=== PATIENT | male | born 1965 | race Caucasian/White ===

== ENCOUNTER 2016-11-28 11:49 | Emergency (ER) | payer OTHER, SELFPAY ==
[~2016-11-28] VITALS: Ht 175.3 cm; Wt 65.9 kg
[2016-11-28 11:49] VITALS: BP 119/77
[~2016-11-28 11:49] MED LIST: ALBUTEROL INHALER INH; GABA-283 PO; OMEP40CA2 PO; PERC7.5T12 PO; VICODAN PO; ZITHROMAX PO
== END 2016-11-28 13:25 | disposition left against medical advice (07) ==
LOC: M ED 11:49
DX: S89.91XA Unspecified injury of right lower leg, initial encounter (principal); W54.0XXA Bitten by dog, initial encounter; Y92.89 Other specified places as the place of occurrence of the external cause; Y93.89 Activity, other specified; Y99.8 Other external cause status; Z53.29 Procedure and treatment not carried out because of patient's decision for other reasons

== ENCOUNTER → 2017-02-09 | Outpatient (CLI) | payer SELFPAY, MEDICAID, OTHER ==
[2017-02-09 19:44] LABS: MEAN CORPUSCULAR HEMOGLOBIN 31.9 pg (27.0-33.0); MEAN CORPUSCULAR HGB CONC 34.4 g/dl (32.0-36.5); MEAN CORPUSCULAR VOLUME 92.8 fl (80.0-96.0); PLATELET COUNT, AUTOMATED 321 10^3/uL (150-450); RED CELL DISTRIBUTION WIDTH 14.6 % (11.5-14.5); WHITE BLOOD COUNT 16.1 10^3/uL (4.0-10.0)
[2017-02-09 20:26] LABS: ANION GAP 6 MEQ/L (8-16); BLOOD UREA NITROGEN 21 MG/DL (7-18); CALCIUM LEVEL 9.3 MG/DL (8.5-10.1); CARBON DIOXIDE LEVEL 30 MEQ/L (21-32); CHLORIDE LEVEL 104 MEQ/L (98-107); GLOMERULAR FILTRATION RATE > 60.0 (>56); GLUCOSE, FASTING 86 MG/DL (70-105); POTASSIUM SERUM 4.5 MEQ/L (3.5-5.1); SODIUM LEVEL 140 MEQ/L (136-145)
--- NOTE | 2017-02-10 01:51 | REP ---
Clinical: Renal neoplasm . Comparison: 10/20/2015 . Technique: PA and lateral. Findings: The mediastinum and cardiac silhouette are normal. The lung jay are clear and without acute consolidation, effusion, or pneumothorax. The skeletal structures are intact and normal. Impression: 1. No acute cardiopulmonary process. Signed by Maged Huffman MD 02/10/2017 01:42 A
== END ==
LOC: M SMT 15:48
PROVIDERS: ATTEND Nurse Practitioner Women's Health
DX: Z85.528 Personal history of other malignant neoplasm of kidney (principal)

== ENCOUNTER → 2017-03-09 | Outpatient (CLI) | payer MEDICAID, OTHER ==
[~2017-03-09] MED LIST changes: +ALEV220T26 PO; +GABA-282 PO; +IPRASOL4 INH; +MULT1TAB10 PO; +NAPR250T4 PO; +SUCR1TA PO; +VENTAER INH
[2017-03-11 14:10] LABS: PSA TOTAL 1.8 ng/mL (0.0-4.0)
== END ==
LOC: M SMT 15:07
PROVIDERS: ATTEND Urology
DX: Z08 Encounter for follow-up examination after completed treatment for malignant neoplasm (principal); Z85.528 Personal history of other malignant neoplasm of kidney

== ENCOUNTER 2017-03-20 10:39 | Day surgery (SDC) | payer OTHER ==
[~2017-03-20] VITALS: Ht 175.3 cm; Wt 69.9 kg
[2017-03-20] MEDS ORDERED: NS 1,000 ML IV ONE (11:00)
[2017-03-20] MEDS ORDERED: LIDOCAINE 2% INJ 100 MG/5 ML SDV (FOR ANES.) As Ordered ONE (11:03)
[2017-03-20] MEDS ORDERED: PROPOFOL 200 MG/20 ML VIAL As Ordered ONE ×2 (11:03→12:09)
--- NOTE | 2017-03-20 12:08 | ROOR ---
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 Procedure: Pre-Anesthesia Assessment: - The heart rate, respiratory rate, oxygen saturations, blood pressure, adequacy of pulmonary ventilation, and response to care were monitored throughout the procedure. The Endoscope was introduced through the mouth, and advanced to the second part of duodenum. The upper GI endoscopy was accomplished without difficulty. The patient tolerated the procedure well. Findings: The Z-line was regular and was found 40 cm from the incisors. Localized mild mucosal changes characterized by scarring were found in the stomach. Biopsies were taken with a cold forceps for histology. The exam of the duodenum was otherwise normal. Impression: - Z-line regular, 40 cm from the incisors. - Scarred mucosa in the stomach. Biopsied. - The examination was otherwise normal. Recommendation: - Await pathology results. - Discharge patient to home. - Continue present medications. - Await pathology results. - Telephone GI clinic for pathology results in 1 week. - The findings and recommendations were discussed with the patient's family. Gustavo Rogers MD Gustavo Rogers MD 03/20/2017 12:07:21 PM This report has been signed electronically. Number of Addenda: 0 Note Initiated On: 03/20/2017 11:50 AM Estimated Blood Loss: Estimated blood loss: none.
--- NOTE | 2017-03-20 12:22 | ROOR ---
Patient Name: Maged Leon Procedure Date: 03/20/2017 11:51 AM Date of : 1965 Age: 52 Room: [facility] Gender: Male Note Status: Finalized Procedure: Total Colonoscopy to Cecum + Cold Snare Polypectomy Indications: Rectal bleeding, Change in bowel habits, Clinically significant diarrhea of unexplained origin Providers: Gustavo Rogers MD Referring MD: NOHEMY Izaguirre Requesting Provider: Medicines: Monitored Anesthesia Care Complications: No immediate complications. Procedure: Pre-Anesthesia Assessment: - The heart rate, respiratory rate, oxygen saturations, blood pressure, adequacy of pulmonary ventilation, and response to care were monitored throughout the procedure. The Colonoscope was introduced through the anus and advanced to the cecum, identified by appendiceal orifice and ileocecal valve. The colonoscopy was performed without difficulty. The patient tolerated the procedure well. The quality of the bowel preparation was excellent. Findings: The perianal and digital rectal examinations were normal. Non-bleeding internal hemorrhoids were found during retroflexion. The hemorrhoids were small and Grade I (internal hemorrhoids that do not prolapse). A medium polyp was found in the hepatic flexure. The polyp was sessile. The polyp was removed with a cold snare. Resection and retrieval were complete. The exam was otherwise without abnormality on direct and retroflexion views. Impression: - Non-bleeding internal hemorrhoids. - One medium polyp at the hepatic flexure, removed with a cold snare. Resected and retrieved. - The examination was otherwise normal on direct and retroflexion views. - The exam was otherwise normal to the cecum. Recommendation: - Patient has a contact number available for emergencies. The signs and symptoms of potential delayed complications were discussed with the patient. Return to normal activities tomorrow. Written discharge instructions were provided to the patient. - High fiber diet. - Discharge patient to home. - Continue present medications. - Await pathology results. - Telephone GI clinic for pathology results in 1 week. - Repeat colonoscopy for surveillance based on pathology results. - Return to referring physician. - The findings and recommendations were discussed with the patient's family. Gustavo Rogers MD Gustavo Rogers MD 03/20/2017 12:22:01 PM This report has been signed electronically. Number of Addenda: 0 Note Initiated On: 03/20/2017 11:51 AM Estimated Blood Loss: Estimated blood loss: none.
[2017-03-20 12:55] VITALS: BP 148/95
== END 2017-03-20 13:05 | disposition home or self-care (01) ==
LOC: M OPP 10:39
PROVIDERS: ATTEND Internal Medicine Gastroenterology
DX: K62.5 Hemorrhage of anus and rectum (principal); R19.4 Change in bowel habit; R19.7 Diarrhea, unspecified; K64.0 First degree hemorrhoids; D12.3 Benign neoplasm of transverse colon; C88.4 Extranodal marginal zone B-cell lymphoma of mucosa-associated lymphoid tissue [MALT-lymphoma]; B96.81 Helicobacter pylori [H. pylori] as the cause of diseases classified elsewhere; K31.89 Other diseases of stomach and duodenum; R10.13 Epigastric pain; J44.9 Chronic obstructive pulmonary disease, unspecified; R51 Headache; G47.33 Obstructive sleep apnea (adult) (pediatric); F17.210 Nicotine dependence, cigarettes, uncomplicated; K27.9 Peptic ulcer, site unspecified, unspecified as acute or chronic, without hemorrhage or perforation; M50.20 Other cervical disc displacement, unspecified cervical region; Z79.891 Long term (current) use of opiate analgesic; Z79.899 Other long term (current) drug therapy; Z90.5 Acquired absence of kidney

== ENCOUNTER 2017-04-20 21:17 | Emergency (ER) | payer OTHER, MEDICAID ==
[2017-04-20] MEDS: NS 1,000 ML IV (22:15)
[2017-04-20] MEDS: ASPIRIN 81 MG CHEW TABLET PO (22:15)
[2017-04-20] MEDS: LORazepam 2 MG/ML VIAL (J2060) IV (22:15)
[2017-04-20 22:29] LABS: WHITE BLOOD COUNT 14.3 10^3/uL (4.0-10.0)
[2017-04-20 22:30] LABS: BASO # 0.1 10^3/uL (0.0-0.2); BASO % 0.4 % (0.0-1.0); EOS # 0.4 10^3/uL (0.0-0.50); EOS % 2.7 % (0.0-3.0); IMMATURE GRANULOCYTE # 0.1 10^3/uL (0-0); IMMATURE GRANULOCYTE % 0.6 % (0-0); LYMPH # 1.6 10^3/uL (1.5-4.5); LYMPH % 10.8 % (24.0-44.0); MEAN CORPUSCULAR HEMOGLOBIN 32.4 pg (27.0-33.0); MEAN CORPUSCULAR HGB CONC 34.2 g/dl (32.0-36.5); MEAN CORPUSCULAR VOLUME 94.6 fl (80.0-96.0); MONO # 1.2 10^3/uL (0.0-0.8); MONO % 8.2 % (0.0-5.0); NEUTROPHILS # 11.1 10^3/uL (1.8-7.7); NEUTROPHILS % 77.3 % (36.0-66.0); PLATELET COUNT, AUTOMATED 339 10^3/uL (150-450); RED CELL DISTRIBUTION WIDTH 16.1 % (11.5-14.5)
[2017-04-20 22:40] LABS: ANION GAP 9 MEQ/L (8-16); BLOOD UREA NITROGEN 18 MG/DL (7-18); CALCIUM LEVEL 8.9 MG/DL (8.5-10.1); CARBON DIOXIDE LEVEL 27 MEQ/L (21-32); CHLORIDE LEVEL 106 MEQ/L (98-107); CREATININE FOR GFR 1.28 MG/DL (0.70-1.30); GLOMERULAR FILTRATION RATE > 60.0 (>56); GLUCOSE, FASTING 85 MG/DL (70-105); INR 0.83; POTASSIUM SERUM 3.9 MEQ/L (3.5-5.1); SODIUM LEVEL 142 MEQ/L (136-145)
[2017-04-20] MEDS: IPRATROPIUM 0.5MG/ALBUTEROL 2.5MG INH SOL UD 3ML (DUONEB)(J7620) NEB (22:42)
[2017-04-20 22:47] LABS: VENOUS BASE EXCESS 2.6 (-2.0-2.0); VENOUS O2 SATURATION 88.5 % (60.0-80.0); VENOUS PARTIAL PRESSURE CO2 23.7 mmHg (38.0-50.0); VENOUS PARTIAL PRESSURE O2 41.4 mmHg (30.0-50.0); VENOUS STANDARD HCO3 26.6 MEQ/L; VENOUS TOTAL CO2 23.2 MEQ/L (24.0-28.0)
[2017-04-20] MEDS: CARISOPRODOL 350 MG TAB PO (23:15)
[2017-04-20] MEDS: NAPROXEN 250 MG TAB PO (23:15)
== END 2017-04-20 23:51 | disposition home or self-care (01) ==
LOC: M ED 21:17
DX: J44.1 Chronic obstructive pulmonary disease with (acute) exacerbation (principal); M54.40 Lumbago with sciatica, unspecified side; I45.2 Bifascicular block; G89.29 Other chronic pain; F17.200 Nicotine dependence, unspecified, uncomplicated; Z82.49 Family history of ischemic heart disease and other diseases of the circulatory system; Z79.899 Other long term (current) drug therapy; Z91.89 Other specified personal risk factors, not elsewhere classified
CPT/HCPCS: J2060

== ENCOUNTER → 2017-05-10 | Outpatient (CLI) | payer OTHER ==
[~2017-05-10] MED LIST changes: -ALBUTEROL INHALER INH; -ALEV220T26 PO; -GABA-282 PO; -GABA-283 PO; -IPRASOL4 INH; -MULT1TAB10 PO; -NAPR250T4 PO; -OMEP40CA2 PO; -PERC7.5T12 PO; +PROHANCE 279.3MG/ML 15ML VIAL (A9576) As Ordered; -SUCR1TA PO; -VENTAER INH; -VICODAN PO; -ZITHROMAX PO
== END ==
LOC: M RAD 15:26
DX: M47.22 Other spondylosis with radiculopathy, cervical region (principal); M51.16 Intervertebral disc disorders with radiculopathy, lumbar region; M51.36 Other intervertebral disc degeneration, lumbar region
CPT/HCPCS: A9576

== ENCOUNTER → 2017-05-24 | Outpatient (CLI) | payer OTHER | LOC: M RAD 14:02 | DX: M47.22 Other spondylosis with radiculopathy, cervical region (principal); M50.222 Other cervical disc displacement at C5-C6 level; M50.223 Other cervical disc displacement at C6-C7 level; M50.322 Other cervical disc degeneration at C5-C6 level; M50.323 Other cervical disc degeneration at C6-C7 level | CPT/HCPCS: A9576 ==

== ENCOUNTER 2017-08-23 00:05 | Emergency (ER) | payer OTHER ==
[2017-08-23 01:29] LABS: BASO # 0.1 10^3/uL (0.0-0.2); BASO % 1.2 % (0.0-1.0); EOS # 0.6 10^3/uL (0.0-0.50); EOS % 5.1 % (0.0-3.0); HEMATOCRIT 40.8 % (42.0-52.0); IMMATURE GRANULOCYTE % 0.3 % (0-3.0); LYMPH # 2.2 10^3/uL (1.5-4.5); LYMPH % 18.9 % (24.0-44.0); MEAN CORPUSCULAR HEMOGLOBIN 31.7 pg (27.0-33.0); MEAN CORPUSCULAR HGB CONC 34.3 g/dl (32.0-36.5); MEAN CORPUSCULAR VOLUME 92.3 fl (80.0-96.0); MONO # 1.1 10^3/uL (0.0-0.8); MONO % 9.9 % (0.0-5.0); NEUTROPHILS # 7.4 10^3/uL (1.8-7.7); NEUTROPHILS % 64.6 % (36.0-66.0); PLATELET COUNT, AUTOMATED 326 10^3/uL (150-450); RED BLOOD COUNT 4.42 10^6/uL (4.30-6.10); RED CELL DISTRIBUTION WIDTH 14.2 % (11.5-14.5); WHITE BLOOD COUNT 11.5 10^3/uL (4.0-10.0)
[2017-08-23 01:42] LABS: ANION GAP 6 MEQ/L (8-16); BLOOD UREA NITROGEN 19 MG/DL (7-18); CALCIUM LEVEL 9.3 MG/DL (8.5-10.1); CARBON DIOXIDE LEVEL 27 MEQ/L (21-32); CHLORIDE LEVEL 105 MEQ/L (98-107); CPK CREATINE PHOSPHOKINASE 122 U/L (39-308); CREATININE FOR GFR 1.23 MG/DL (0.70-1.30); GLOMERULAR FILTRATION RATE > 60.0 (>56); GLUCOSE, FASTING 96 MG/DL (70-100); SODIUM LEVEL 138 MEQ/L (136-145); TROPONIN I < 0.02 NG/ML (< 0.10)
[2017-08-23 01:43] LABS: CK-MB VALUE MASS < 1.0 NG/ML (<3.6); MB/CK RELATIVE INDEX 0.81 (< OR =4)
[2017-08-23] MEDS ORDERED: ISOVUE-370 76% 100ML VIAL (Q9967) As Ordered (01:56)
[2017-08-23 02:43] LABS: ABG BASE EXCESS -0.1 (-2.0-2.0); ABG HCO3 24.1 MEQ/L (22.0-26.0); ABG O2 SATURATION 95.8 % (95.0-99.0); ABG PARTIAL PRESSURE CO2 37.7 mmHg (35.0-45.0); ABG PARTIAL PRESSURE O2 77.9 mmHg (75.0-100.0); ABG STANDARD HCO3 24.4 MEQ/L (22.0-26.0); ABG TOTAL CO2 25.2 MEQ/L (22.0-29.0); ABG pH (ARTERIAL) 7.423 UNITS (7.350-7.450)
[2017-08-23] MEDS: IPRATROPIUM 0.5MG/ALBUTEROL 2.5MG INH SOL UD 3ML (DUONEB)(J7620) NEB (02:51)
[2017-08-23] MEDS: predniSONE 20 MG TAB PO (04:45)
== END 2017-08-23 04:50 | disposition home or self-care (01) ==
LOC: M ED 00:05
DX: J44.1 Chronic obstructive pulmonary disease with (acute) exacerbation (principal); R06.02 Shortness of breath; I45.10 Unspecified right bundle-branch block; F17.210 Nicotine dependence, cigarettes, uncomplicated; Z91.048 Other nonmedicinal substance allergy status; Z79.899 Other long term (current) drug therapy
CPT/HCPCS: Q9967

== ENCOUNTER 2017-09-03 05:05 | Inpatient (IN) | payer OTHER ==
[2017-09-03 05:56] LABS: ABG BASE EXCESS -0.1 (-2.0-2.0); ABG O2 SATURATION 96.1 % (95.0-99.0); ABG PARTIAL PRESSURE CO2 29.1 mmHg (35.0-45.0); ABG PARTIAL PRESSURE O2 71.8 mmHg (75.0-100.0); ABG STANDARD HCO3 24.4 MEQ/L (22.0-26.0); ABG TOTAL CO2 22.9 MEQ/L (22.0-29.0); ABG pH (ARTERIAL) 7.496 UNITS (7.350-7.450); BASO # 0.1 10^3/uL (0.0-0.2); BASO % 0.5 % (0.0-1.0); EOS # 0.2 10^3/uL (0.0-0.50); EOS % 0.8 % (0.0-3.0); HEMOGLOBIN 14.1 g/dl (13.5-17.5); IMMATURE GRANULOCYTE % 0.6 % (0-3.0); LYMPH # 0.9 10^3/uL (1.5-4.5); MEAN CORPUSCULAR HEMOGLOBIN 31.7 pg (27.0-33.0); MEAN CORPUSCULAR HGB CONC 34.4 g/dl (32.0-36.5); MEAN CORPUSCULAR VOLUME 92.1 fl (80.0-96.0); MONO % 4.5 % (0.0-5.0); NEUTROPHILS # 19.5 10^3/uL (1.8-7.7); NEUTROPHILS % 89.6 % (36.0-66.0); PLATELET COUNT, AUTOMATED 292 10^3/uL (150-450); RED BLOOD COUNT 4.45 10^6/uL (4.30-6.10); RED CELL DISTRIBUTION WIDTH 14.6 % (11.5-14.5); WHITE BLOOD COUNT 21.8 10^3/uL (4.0-10.0)
[2017-09-03] MEDS: dexameTHASONE 20 MG/5 ML VIAL (J1100) IV (05:56)
[2017-09-03] MEDS: ACETAMINOPHEN 325 MG TAB PO (05:56)
[2017-09-03] MEDS: IPRATROPIUM 0.5MG/ALBUTEROL 2.5MG INH SOL UD 3ML (DUONEB)(J7620) NEB ×3 (06:08→20:43)
[2017-09-03 06:09] LABS: ANION GAP 5 MEQ/L (8-16); BLOOD UREA NITROGEN 14 MG/DL (7-18); CALCIUM LEVEL 9.1 MG/DL (8.5-10.1); CARBON DIOXIDE LEVEL 27 MEQ/L (21-32); CHLORIDE LEVEL 106 MEQ/L (98-107); CREATININE FOR GFR 1.29 MG/DL (0.70-1.30); GLOMERULAR FILTRATION RATE > 60.0 (>56); GLUCOSE, FASTING 134 MG/DL (70-100); POTASSIUM SERUM 3.9 MEQ/L (3.5-5.1); SODIUM LEVEL 138 MEQ/L (136-145)
[2017-09-03] MEDS ORDERED: ISOVUE-370 76% 100ML VIAL (Q9967) As Ordered (06:13)
[2017-09-03 06:14] LABS: LACTIC ACID SEPSIS PROTOCOL 1.9 MMOL/L (0.4-2.0)
[2017-09-03] MEDS: LevoFLOXacin IV 750 MG in APPROPRIATE DILUENT 1 EA IV (07:45)
[2017-09-03 07:59] LABS: KETONE, URINE AUTO RFX NEGATIVE (NEGATIVE); LEUKOCYTE ESTERASE UR AUTO RFX NEGATIVE (NEGATIVE); NITRITE, URINE AUTO RFX NEGATIVE (NEGATIVE); RBC, URINE AUTO RFX 0 /HPF (0-3); SPECIFIC GRAVITY UR AUTO RFX 1.019 (1.002-1.035); SQUAM EPITHELIAL CELL UR AURFX 0 /HPF (0-6); WBC, URINE AUTO RFX 0 /HPF (0-3)
[2017-09-03] MEDS ORDERED: IPRATROPIUM 0.5MG/ALBUTEROL 2.5MG INH SOL UD 3ML (DUONEB)(J7620) NEB ×2 (08:00→08:15)
[2017-09-03] MEDS ORDERED: ONDANSETRON 4MG/2ML VIAL (J2405) IV (08:15)
[2017-09-03] MEDS ORDERED: ACETAMINOPHEN TAB 650MG DOSE (2X325MG) PO ×2 (08:15→10:00)
[2017-09-03] MEDS ORDERED: ONDANSETRON 4 MG TAB (S0181) PO (08:15)
[2017-09-03] MEDS ORDERED: methylPREDNISolone INJ 125 MG/2 ML VIAL (J2930) IV (09:00)
[2017-09-03] MEDS: MULTIVITAMINS/MINERALS THERAP 1 TAB PO (09:17)
[2017-09-03] MEDS: FOLIC ACID 1 MG TAB PO (09:17)
[2017-09-03] MEDS: THIAMINE 100 MG TAB PO (09:17)
[2017-09-03] MEDS: ENOXAPARIN 40 MG/0.4 ML SYRINGE (J1650) SC (09:18)
[2017-09-03] MEDS: PERCOCET 5MG/325MG TAB PO ×3 (10:01→20:13)
[2017-09-03] MEDS: FLUoxetine 20 MG CAP PO (10:01)
[2017-09-03] MEDS: NICOTINE 21MG/24HR 1 EA TRANSDERMAL TD (10:02)
[2017-09-03] MEDS: OMEPRAZOLE 20 MG CAP PO (10:02)
[2017-09-03] MEDS: SUCRALFATE 1 GM TAB PO ×2 (10:02→20:12)
[2017-09-03 10:08] LABS: CPK CREATINE PHOSPHOKINASE 60 U/L (39-308); TROPONIN I < 0.02 NG/ML (< 0.10)
[2017-09-03 10:09] LABS: CK-MB VALUE MASS < 1.0 NG/ML (<3.6); MB/CK RELATIVE INDEX 1.66 (< OR =4)
[2017-09-03] MEDS: methylPREDNISolone INJ 125 MG/2 ML VIAL (J2930) IV (14:12)
[2017-09-03] MEDS: OXAZEPAM 10 MG CAP PO (14:12)
[2017-09-03 15:54] LABS: CK-MB VALUE MASS < 1.0 NG/ML (<3.6); CPK CREATINE PHOSPHOKINASE 55 U/L (39-308); MB/CK RELATIVE INDEX 1.81 (< OR =4); TROPONIN I < 0.02 NG/ML (< 0.10)
[2017-09-03] MEDS: traZODone 100 MG TAB PO (20:12)
[2017-09-03 21:50] LABS: CK-MB VALUE MASS < 1.0 NG/ML (<3.6); CPK CREATINE PHOSPHOKINASE 44 U/L (39-308); MB/CK RELATIVE INDEX 2.27 (< OR =4); TROPONIN I < 0.02 NG/ML (< 0.10)
[2017-09-04] MEDS: OXAZEPAM 10 MG CAP PO ×2 (02:20→10:10)
[2017-09-04] MEDS: methylPREDNISolone INJ 125 MG/2 ML VIAL (J2930) IV (02:20)
[2017-09-04] MEDS: IPRATROPIUM 0.5MG/ALBUTEROL 2.5MG INH SOL UD 3ML (DUONEB)(J7620) NEB ×3 (03:23→14:00)
[2017-09-04 04:44] LABS: BASO # 0.1 10^3/uL (0.0-0.2); BASO % 0.2 % (0.0-1.0); HEMATOCRIT 39.6 % (42.0-52.0); HEMOGLOBIN 13.4 g/dl (13.5-17.5); IMMATURE GRANULOCYTE % 0.8 % (0-3.0); LYMPH # 0.8 10^3/uL (1.5-4.5); LYMPH % 3.1 % (24.0-44.0); MEAN CORPUSCULAR HEMOGLOBIN 31.2 pg (27.0-33.0); MEAN CORPUSCULAR HGB CONC 33.8 g/dl (32.0-36.5); MEAN CORPUSCULAR VOLUME 92.1 fl (80.0-96.0); MONO # 0.3 10^3/uL (0.0-0.8); MONO % 1.3 % (0.0-5.0); NEUTROPHILS # 24.8 10^3/uL (1.8-7.7); NEUTROPHILS % 94.6 % (36.0-66.0); PLATELET COUNT, AUTOMATED 288 10^3/uL (150-450); RED CELL DISTRIBUTION WIDTH 14.8 % (11.5-14.5); WHITE BLOOD COUNT 26.2 10^3/uL (4.0-10.0)
[2017-09-04 05:00] LABS: ALBUMIN 3.2 GM/DL (3.2-5.2); ALBUMIN/GLOBULIN RATIO 0.89 (1.00-1.93); ALKALINE PHOSPHATASE 97 U/L (45-117); ALT/SGPT 25 U/L (12-78); ANION GAP 7 MEQ/L (8-16); AST/SGOT 12 U/L (7-37); BILIRUBIN,TOTAL 0.2 MG/DL (0.2-1.0); BLOOD UREA NITROGEN 16 MG/DL (7-18); CALCIUM LEVEL 9.1 MG/DL (8.5-10.1); CARBON DIOXIDE LEVEL 25 MEQ/L (21-32); CHLORIDE LEVEL 107 MEQ/L (98-107); CREATININE FOR GFR 1.26 MG/DL (0.70-1.30); GLOMERULAR FILTRATION RATE > 60.0 (>56); GLUCOSE, FASTING 179 MG/DL (70-100); POTASSIUM SERUM 3.8 MEQ/L (3.5-5.1); SODIUM LEVEL 139 MEQ/L (136-145); TOTAL PROTEIN 6.8 GM/DL (6.4-8.2)
[2017-09-04] MEDS: PERCOCET 5MG/325MG TAB PO (05:08)
[2017-09-04] MEDS: FLUoxetine 20 MG CAP PO (08:43)
[2017-09-04] MEDS: MULTIVITAMINS/MINERALS THERAP 1 TAB PO (08:43)
[2017-09-04] MEDS: FOLIC ACID 1 MG TAB PO (08:43)
[2017-09-04] MEDS: SUCRALFATE 1 GM TAB PO (08:43)
[2017-09-04] MEDS: THIAMINE 100 MG TAB PO (08:43)
[2017-09-04] MEDS: ENOXAPARIN 40 MG/0.4 ML SYRINGE (J1650) SC (08:43)
[2017-09-04] MEDS: LevoFLOXacin IV 750 MG in APPROPRIATE DILUENT 1 EA IV (08:43)
[2017-09-04] MEDS: OMEPRAZOLE 20 MG CAP PO (08:43)
[2017-09-04] MEDS: NICOTINE 21MG/24HR 1 EA TRANSDERMAL TD (08:44)
[2017-09-04] MEDS ORDERED: LevoFLOXacin IV 750 MG in APPROPRIATE DILUENT 1 EA IV (09:00)
[2017-09-04] MEDS ORDERED: methylPREDNISolone INJ 125 MG/2 ML VIAL (J2930) IV (10:00)
[2017-09-04] MEDS: methylPREDNISolone INJ 40 MG/1 ML VIAL (J2920) IV (10:10)
[2017-09-04] MEDS ORDERED: PROHANCE 279.3MG/ML 15ML VIAL (A9576) As Ordered (12:07)
== END 2017-09-04 17:18 | disposition left against medical advice (07) | DRG 140 ==
LOC: M MSPAV 09-04 10:45 → M ED 05:05 → M ED INP 08:10 → M ICU 14:39
DX: J44.1 Chronic obstructive pulmonary disease with (acute) exacerbation (principal); C88.4 Extranodal marginal zone B-cell lymphoma of mucosa-associated lymphoid tissue [MALT-lymphoma]; F10.10 Alcohol abuse, uncomplicated; F32.9 Major depressive disorder, single episode, unspecified; K21.9 Gastro-esophageal reflux disease without esophagitis; J20.9 Acute bronchitis, unspecified; M43.02 Spondylolysis, cervical region; Z79.899 Other long term (current) drug therapy

== ENCOUNTER 2017-10-18 00:22 | Emergency (ER) | payer OTHER ==
[2017-10-18 01:11] LABS: HEMATOCRIT 40.3 % (42.0-52.0); MEAN CORPUSCULAR HEMOGLOBIN 31.8 pg (27.0-33.0); MEAN CORPUSCULAR HGB CONC 34.7 g/dl (32.0-36.5); MEAN CORPUSCULAR VOLUME 91.6 fl (80.0-96.0); PLATELET COUNT, AUTOMATED 316 10^3/uL (150-450); RED CELL DISTRIBUTION WIDTH 13.8 % (11.5-14.5); WHITE BLOOD COUNT 8.9 10^3/uL (4.0-10.0)
[2017-10-18 01:22] LABS: ALBUMIN 3.9 GM/DL (3.2-5.2); ALBUMIN/GLOBULIN RATIO 1.44 (1.00-1.93); ALKALINE PHOSPHATASE 92 U/L (45-117); ALT/SGPT 35 U/L (12-78); ANION GAP 8 MEQ/L (8-16); AST/SGOT 34 U/L (7-37); BILIRUBIN,DIRECT < 0.1 MG/DL (0.0-0.2); BILIRUBIN,TOTAL 0.3 MG/DL (0.2-1.0); BLOOD UREA NITROGEN 10 MG/DL (7-18); CALCIUM LEVEL 8.8 MG/DL (8.5-10.1); CARBON DIOXIDE LEVEL 25 MEQ/L (21-32); CHLORIDE LEVEL 108 MEQ/L (98-107); CREATININE FOR GFR 1.28 MG/DL (0.70-1.30); ETHYL ALCOHOL (ETHANOL) 0.242 % (0.000-0.010); GLOMERULAR FILTRATION RATE > 60.0 (>56); GLUCOSE, FASTING 104 MG/DL (70-100); POTASSIUM SERUM 3.9 MEQ/L (3.5-5.1); SALICYLATE LEVEL 6.2 MG/DL (5.0-30.0); SODIUM LEVEL 141 MEQ/L (136-145); THYROID STIMULATING HORMONE 0.761 uIU/ML (0.358-3.740); TOTAL PROTEIN 6.6 GM/DL (6.4-8.2)
[2017-10-18 01:23] LABS: ACETAMINOPHEN LEVEL < 2.0 UG/ML (10.0-30.0)
[2017-10-18 01:30] LABS: AMPHETAMINES LEVEL URINE NEGATIVE (NEGATIVE); BARBITURATES URINE NEGATIVE (NEGATIVE); BENZODIAZEPINES URINE NEGATIVE (NEGATIVE); CANNABINOIDS URINE POSITIVE (NEGATIVE); COCAINE METABOLITE URINE NEGATIVE (NEGATIVE); METHADONE URINE NEGATIVE (NEGATIVE); OPIATES URINE NEGATIVE (NEGATIVE); PHENCYCLIDINE URINE NEGATIVE (NEGATIVE)
== END 2017-10-18 09:13 | disposition home or self-care (01) ==
LOC: M ED 00:22
DX: F10.129 Alcohol abuse with intoxication, unspecified (principal); J44.9 Chronic obstructive pulmonary disease, unspecified; K21.9 Gastro-esophageal reflux disease without esophagitis; F32.9 Major depressive disorder, single episode, unspecified; M51.9 Unspecified thoracic, thoracolumbar and lumbosacral intervertebral disc disorder; Z85.72 Personal history of non-Hodgkin lymphomas; Z85.528 Personal history of other malignant neoplasm of kidney; Z72.0 Tobacco use; Z79.899 Other long term (current) drug therapy; Z91.89 Other specified personal risk factors, not elsewhere classified
CPT/HCPCS: 80320

== ENCOUNTER → 2018-03-19 | Outpatient (CLI) | payer MEDICARE, OTHER, SELFPAY ==
[2018-03-19 17:47] LABS: HEMATOCRIT 48.3 % (42.0-52.0); HEMOGLOBIN 16.1 g/dl (13.5-17.5); MEAN CORPUSCULAR HEMOGLOBIN 31.2 pg (27.0-33.0); MEAN CORPUSCULAR HGB CONC 33.3 g/dl (32.0-36.5); MEAN CORPUSCULAR VOLUME 93.6 fl (80.0-96.0); PLATELET COUNT, AUTOMATED 312 10^3/uL (150-450); RED BLOOD COUNT 5.16 10^6/uL (4.30-6.10); RED CELL DISTRIBUTION WIDTH 14.5 % (11.5-14.5); WHITE BLOOD COUNT 6.9 10^3/uL (4.0-10.0)
[2018-03-19 18:12] LABS: ANION GAP 5 MEQ/L (8-16); BLOOD UREA NITROGEN 16 MG/DL (7-18); CALCIUM LEVEL 9.5 MG/DL (8.5-10.1); CARBON DIOXIDE LEVEL 30 MEQ/L (21-32); CHLORIDE LEVEL 104 MEQ/L (98-107); CREATININE FOR GFR 1.11 MG/DL (0.70-1.30); GLOMERULAR FILTRATION RATE > 60.0 (>56); GLUCOSE, FASTING 92 MG/DL (70-100); POTASSIUM SERUM 4.3 MEQ/L (3.5-5.1); PSA SCREENING 1.1 NG/ML (< 4.0); SODIUM LEVEL 139 MEQ/L (136-145)
== END ==
LOC: M SMT 15:56
DX: Z85.528 Personal history of other malignant neoplasm of kidney (principal); Z12.5 Encounter for screening for malignant neoplasm of prostate
CPT/HCPCS: 80048

== ENCOUNTER → 2018-03-26 | Outpatient (REF) | payer OTHER, MEDICARE ==
[2018-03-26 18:51] LABS: APPEARANCE, URINE CLEAR (CLEAR); BACTERIA, URINE AUTO NEGATIVE (NEGATIVE); BILIRUBIN, URINE AUTO NEGATIVE (NEGATIVE); BLOOD, URINE BLOOD NEGATIVE (NEGATIVE); COLOR, URINE YELLOW (YELLOW); GLUCOSE, URINE (UA) AUTO NEGATIVE (NEGATIVE); KETONE, URINE AUTO NEGATIVE (NEGATIVE); LEUKOCYTE ESTERASE, URINE AUTO NEGATIVE (NEGATIVE); MUCUS, URINE SMALL (NEGATIVE); NITRITE, URINE AUTO NEGATIVE (NEGATIVE); PROTEIN, URINE AUTO NEGATIVE (NEGATIVE); RBC, URINE AUTO 0 /HPF (0-3); SPECIFIC GRAVITY URINE AUTO 1.013 (1.002-1.035); SQUAMOUS EPITHELIAL CELL UR AU 0 /HPF (0-6); UROBILINOGEN, URINE AUTO 0.2 mg/dL (0.0-2.0); WBC, URINE AUTO 0 /HPF (0-3)
== END ==
LOC: M SMT 17:04
DX: Z85.528 Personal history of other malignant neoplasm of kidney (principal)
CPT/HCPCS: 81001

== ENCOUNTER 2018-04-16 14:01 | Emergency (ER) | payer MEDICARE, OTHER ==
[~2018-04-16] VITALS: Ht 175.3 cm; Wt 69.5 kg
[~2018-04-16 14:01] MED LIST changes: +ALBUTEROL INHALER INH; +ALEV220T26 PO; +AVEL1TAB3 PO; +DOXY100C37 PO; +FLUO20CA19 PO; +FLUO40CA PO; +GABA-843 PO; +GABA-845 PO; +IPRA0.00 INH; +LEVO500T3; +MULT1TAB10 PO; +NAPR250T4 PO; +NICO21DI5 TD; +OMEP40CA2 PO; +PERC7.5T12 PO; +PRED20TA PO; -PROHANCE 279.3MG/ML 15ML VIAL (A9576) As Ordered; +SOMA350T PO; +SUCR1TA PO; +TRAZ-163 PO; +VENTAER INH; +VICODAN PO; +ZITHROMAX PO
[2018-04-16] MEDS ORDERED: NS 1,000 ML IV ONE (15:30)
--- NOTE | 2018-04-16 16:00 | REP ---
Clinical: Syncope . Comparison: None . Findings: The ventricles, sulci, and cisterns are normal in position and appearance. Hernandez-white differentiation is maintained. No acute intracranial hemorrhage, mass/mass effect, pathology or trauma/injury. No evidence for acute infarction. No extra-axial fluid collection. Calvarium is intact. Paranasal sinuses and mastoid air cells are clear. Impression: Normal noncontrast head CT. No evidence for acute intracranial pathology or trauma/injury. Electronically Signed by Maged Huffman MD 04/16/2018 03:51 P
--- NOTE | 2018-04-16 16:01 | REP ---
Clinical: Syncope/near-syncopal episode . Comparison: 09/03/2017 . Findings: The mediastinum and cardiac silhouette are stable and within normal limits for portable technique. The lung jay are clear without acute consolidation, effusion, or pneumothorax. Skeletal structures are intact. Impression: No acute cardiopulmonary process appreciated. Electronically Signed by Maged Huffman MD 04/16/2018 03:53 P
[2018-04-16 16:12] LABS: BASO # 0.2 10^3/uL (0.0-0.2); BASO % 1.4 % (0.0-1.0); EOS # 0.3 10^3/uL (0.0-0.50); HEMATOCRIT 49.7 % (42.0-52.0); LYMPH # 1.9 10^3/uL (1.5-4.5); LYMPH % 17.3 % (24.0-44.0); MEAN CORPUSCULAR HEMOGLOBIN 31.7 pg (27.0-33.0); MEAN CORPUSCULAR HGB CONC 34.2 g/dl (32.0-36.5); MEAN CORPUSCULAR VOLUME 92.7 fl (80.0-96.0); MONO % 8.9 % (0.0-5.0); NEUTROPHILS # 7.5 10^3/uL (1.8-7.7); NEUTROPHILS % 69.2 % (36.0-66.0); PLATELET COUNT, AUTOMATED 270 10^3/uL (150-450); RED BLOOD COUNT 5.36 10^6/uL (4.30-6.10); WHITE BLOOD COUNT 10.8 10^3/uL (4.0-10.0)
[2018-04-16 16:35] LABS: INR 0.96; PROTHROMBIN TIME 12.8 SECONDS (12.1-14.4)
[2018-04-16 16:36] LABS: BLOOD UREA NITROGEN 12 MG/DL (7-18); C REACTIVE PROTEIN QUANTITATIV < 0.30 MG/DL (0.00-0.30); CALCIUM LEVEL 9.3 MG/DL (8.5-10.1); CARBON DIOXIDE LEVEL 25 MEQ/L (21-32); CHLORIDE LEVEL 108 MEQ/L (98-107); CK-MB VALUE MASS < 1.0 NG/ML (<3.6); CPK CREATINE PHOSPHOKINASE 108 U/L (39-308); CREATININE FOR GFR 1.03 MG/DL (0.70-1.30); FREE T4 0.95 NG/DL (0.76-1.46); GLOMERULAR FILTRATION RATE > 60.0 (>56); GLUCOSE, FASTING 97 MG/DL (70-100); MB/CK RELATIVE INDEX 0.93 (< OR =4); PARTIAL THROMBOPLASTIN TIME 27.5 SECONDS (25.4-37.6); POTASSIUM SERUM 4.2 MEQ/L (3.5-5.1); SODIUM LEVEL 141 MEQ/L (136-145); TROPONIN I < 0.02 NG/ML (< 0.10)
[2018-04-16 16:38] LABS: D-DIMER QUANT 339.01 ng/ml (<500)
[2018-04-16 16:42] LABS: ERYTHROCYTE SEDIMENTATION RATE 1 mm/hr (0-20)
--- NOTE | 2018-04-16 19:52 | REPVR ---
EXAM: MR Lumbar Spine Without Contrast. EXAM DATE/TIME: 04/16/2018 6:38 PM CLINICAL HISTORY: 53 years old, male; Pain and signs and symptoms; Weakness; Lumbago; Additional info: Left leg weakness/back pain TECHNIQUE: Multiplanar magnetic resonance images of the lumbar spine without intravenous contrast. COMPARISON: MRI-LS SPINE W/O FOLL WITH CON 09/04/2017 12:29 PM FINDINGS: Vertebrae: No fracture. Spinal cord: Conus terminates at the level of the L1 vertebral body. DISCS/SPINAL CANAL/NEURAL FORAMINA: T12-L1: Decreased disc signal and mild disc bulge. Schmorl's nodes. No focal disc protrusion or spinal stenosis. L1-L2: Decreased disc signal and mild disc bulge. Schmorl's nodes. No focal disc protrusion or spinal stenosis. L2-L3: No significant disc disease. No stenosis. L3-L4: Minimal bilateral facet hypertrophy and ligamentum flavum thickening. Unremarkable disc. No nerve impingement or spinal stenosis. L4-L5: Disc space height loss and mild decreased disc signal. Slightly asymmetric left-sided posterior broad-based disc protrusion. Posterior central/left posterior paracentral annular fissure. Mild Modic type I endplate signal changes. Bilateral facet hypertrophy and ligamentum flavum thickening. Mild spinal stenosis. No nerve root impingement. L5-S1: Disc space height loss, decreased disc signal and posterior broad-based disc protrusion. Bilateral facet hypertrophy and ligamentum flavum thickening. Mild spinal stenosis and mild left lateral recess stenosis. No focal disc protrusion or nerve root impingement. Modic type II endplate signal changes. Soft tissues: Unremarkable. IMPRESSION: Degenerative disc disease and facet arthrosis. Electronically signed by: Gerardo Giraldo On 04/16/2018 19:52:14 PM
[2018-04-16 20:16] VITALS: BP 152/67
--- NOTE | 2018-04-17 05:56 | ECGEPIP ---
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
== END 2018-04-16 20:38 | disposition home or self-care (01) ==
LOC: M ED 14:01
DX: R53.1 Weakness (principal); M48.00 Spinal stenosis, site unspecified; J44.9 Chronic obstructive pulmonary disease, unspecified; K21.9 Gastro-esophageal reflux disease without esophagitis; F17.210 Nicotine dependence, cigarettes, uncomplicated; G47.33 Obstructive sleep apnea (adult) (pediatric); Z79.899 Other long term (current) drug therapy

== ENCOUNTER → 2018-06-07 | Outpatient (REF) | payer MEDICARE, OTHER ==
[~2018-06-07] MED LIST changes: -NICO21DI5 TD; +NICO21DI6 TD
[2018-06-07 13:59] LABS: INFLUENZA A AMPLIFICATION NEGATIVE (NEGATIVE); INFLUENZA B AMPLIFICATION NEGATIVE (NEGATIVE)
== END ==
LOC: M LAB REF 13:16
PROVIDERS: ATTEND Physician Assistant
DX: R68.89 Other general symptoms and signs (principal)

== ENCOUNTER → 2018-06-29 | Outpatient (REF) | payer OTHER, MEDICAID ==
[2018-06-29 12:33] LABS: APPEARANCE, URINE CLEAR (CLEAR); BACTERIA, URINE AUTO NEGATIVE (NEGATIVE); BILIRUBIN, URINE AUTO NEGATIVE (NEGATIVE); BLOOD, URINE BLOOD NEGATIVE (NEGATIVE); COLOR, URINE STRAW (YELLOW); GLUCOSE, URINE (UA) AUTO NEGATIVE (NEGATIVE); KETONE, URINE AUTO NEGATIVE (NEGATIVE); LEUKOCYTE ESTERASE, URINE AUTO NEGATIVE (NEGATIVE); NITRITE, URINE AUTO NEGATIVE (NEGATIVE); PROTEIN, URINE AUTO NEGATIVE (NEGATIVE); RBC, URINE AUTO 1 /HPF (0-3); SPECIFIC GRAVITY URINE AUTO 1.005 (1.002-1.035); SQUAMOUS EPITHELIAL CELL UR AU 0 /HPF (0-6); UROBILINOGEN, URINE AUTO 0.2 mg/dL (0.0-2.0); WBC, URINE AUTO 0 /HPF (0-3)
[2018-06-29 13:24] LABS: CREATININE, URINE 34.6 MG/DL; MALB URINE SIEMENS < 5.0 MG/L; MAU/CREAT RATIO 14.4 MCG/MG (0.0-30.0)
== END ==
LOC: M SFHCPLAZ 09:49
PROVIDERS: ATTEND Nurse Practitioner Family
DX: R50.9 Fever, unspecified (principal); N18.3 Chronic kidney disease, stage 3 (moderate); Z13.228 Encounter for screening for other metabolic disorders; Z12.5 Encounter for screening for malignant neoplasm of prostate

== ENCOUNTER → 2018-06-29 | Outpatient (CLI) | payer OTHER, MEDICAID ==
[2018-06-29 11:54] LABS: BASO # 0.1 10^3/uL (0.0-0.2); BASO % 1.5 % (0.0-1.0); EOS # 0.5 10^3/uL (0.0-0.50); EOS % 5.6 % (0.0-3.0); HEMATOCRIT 44.2 % (42.0-52.0); LYMPH # 1.6 10^3/uL (1.5-4.5); LYMPH % 17.9 % (24.0-44.0); MEAN CORPUSCULAR HEMOGLOBIN 31.9 pg (27.0-33.0); MEAN CORPUSCULAR HGB CONC 33.9 g/dl (32.0-36.5); MONO # 0.6 10^3/uL (0.0-0.8); MONO % 7.2 % (0.0-5.0); NEUTROPHILS % 67.4 % (36.0-66.0); PLATELET COUNT, AUTOMATED 323 10^3/uL (150-450); WHITE BLOOD COUNT 8.9 10^3/uL (4.0-10.0)
[2018-06-29 11:56] LABS: APPEARANCE, URINE CLEAR (CLEAR); BACTERIA, URINE AUTO NEGATIVE (NEGATIVE); BILIRUBIN, URINE AUTO NEGATIVE (NEGATIVE); BLOOD, URINE BLOOD NEGATIVE (NEGATIVE); COLOR, URINE YELLOW (YELLOW); GLUCOSE, URINE (UA) AUTO NEGATIVE (NEGATIVE); KETONE, URINE AUTO NEGATIVE (NEGATIVE); LEUKOCYTE ESTERASE, URINE AUTO NEGATIVE (NEGATIVE); NITRITE, URINE AUTO NEGATIVE (NEGATIVE); PROTEIN, URINE AUTO NEGATIVE (NEGATIVE); RBC, URINE AUTO 1 /HPF (0-3); SPECIFIC GRAVITY URINE AUTO 1.012 (1.002-1.035); SQUAMOUS EPITHELIAL CELL UR AU 0 /HPF (0-6); UROBILINOGEN, URINE AUTO 0.2 mg/dL (0.0-2.0); WBC, URINE AUTO 0 /HPF (0-3)
[2018-06-29 12:30] LABS: MALB URINE SIEMENS 6.1 MG/L; MAU/CREAT RATIO 5.7 MCG/MG (0.0-30.0)
[2018-06-29 12:35] LABS: HEMOGLOBIN A1c 5.6 %
--- NOTE | 2018-06-29 12:51 | REP ---
Chest x-ray: Two views. History: Fever and chills. . Comparison study: April 16, 2018 . Findings: The lungs are well inflated and free of infiltrate. The pleural angles are sharp. The heart size is normal. Pulmonary vasculature is not increased. No significant bony abnormality is seen. Impression: Negative chest x-ray. Electronically Signed by Yves Garcia MD 06/29/2018 12:42 P
[2018-06-29 12:57] LABS: ALBUMIN 3.6 GM/DL (3.2-5.2); ALT/SGPT 25 U/L (12-78); BILIRUBIN,TOTAL 0.4 MG/DL (0.2-1.0); BLOOD UREA NITROGEN 12 MG/DL (7-18); CALCIUM LEVEL 8.9 MG/DL (8.5-10.1); CARBON DIOXIDE LEVEL 27 MEQ/L (21-32); CHLORIDE LEVEL 108 MEQ/L (98-107); CHOLESTEROL LEVEL 202 MG/DL (<200); CHOLESTEROL RISK RATIO 3.884 (<5); CREATININE FOR GFR 1.04 MG/DL (0.70-1.30); FREE T4 0.74 NG/DL (0.76-1.46); GLOMERULAR FILTRATION RATE > 60.0 (>56); GLUCOSE, FASTING 119 MG/DL (70-100); HDL CHOLESTEROL 52 MG/DL (>40); LDL CHOLESTEROL 123 MG/DL (<100); NON-HDL-C 150 MG/DL; POTASSIUM SERUM 4.1 MEQ/L (3.5-5.1); SODIUM LEVEL 142 MEQ/L (136-145); TOTAL PROTEIN 6.6 GM/DL (6.4-8.2); TRIGLYCERIDES LEVEL 136 MG/DL (<150)
[2018-06-29 13:13] LABS: HIV 1&2 SCREEN CENTAUR NEGATIVE (NEGATIVE)
== END ==
LOC: M LAB 11:16
PROVIDERS: ATTEND Nurse Practitioner Family
DX: Z13.228 Encounter for screening for other metabolic disorders (principal); Z12.5 Encounter for screening for malignant neoplasm of prostate; R50.9 Fever, unspecified; N18.3 Chronic kidney disease, stage 3 (moderate); Z79.899 Other long term (current) drug therapy
CPT/HCPCS: 71046; 80053; 80061; 81001; 82043; 83036; 83605; 84439; 84443; 85025; 86480; 87040; 87389; G0103; G0463

== ENCOUNTER → 2018-07-04 | Outpatient (REF) | payer OTHER, MEDICAID | LOC: M SFHCPLAZ 08:01 | PROVIDERS: ATTEND Nurse Practitioner Family | DX: K21.9 Gastro-esophageal reflux disease without esophagitis (principal) | CPT/HCPCS: 36415; 86677; G0463 ==

== ENCOUNTER → 2018-07-11 | Outpatient (CLI) | payer OTHER, MEDICAID ==
[~2018-07-11] MED LIST changes: +GASTROGRAFIN SOLUTION 30ML (Q9963) As Ordered ONE; +ISOVUE-370 76% 125ML VIAL (Q9967 PER ML) As Ordered ONE
--- NOTE | 2018-07-12 08:10 | REP ---
Clinical: Generalized abdominal pain. Technique: Axial contrast enhanced images from the lung bases to the pubic symphysis using oral (per protocol) and 100 ml Isovue 370 intravenous contrast material with precontrast and delayed images of the abdomen as well as coronal and sagittal re-formations. Comparison: 08/10/2015. Findings: The patient is noted to be status post left nephrectomy. Liver, spleen, pancreas, gallbladder, bilateral adrenal glands and right kidney are normal. The enteric system is without obstruction or acute inflammatory process. Normal terminal ileum and appendix are identified in the right lower quadrant. Sigmoid diverticulosis noted without acute diverticulitis. Pelvis demonstrates normal bladder and age appropriate prostate/seminal vesicles. No ascites. No free air. No adenopathy. Abdominal aorta without aneurysm or dissection. Musculoskeletal structures demonstrate age-related changes without focal osseous abnormality. Lung bases are clear. Impression: 1. Evidence of prior left nephrectomy. 2. No acute abdominopelvic pathology appreciated. 3. Sigmoid diverticula without acute diverticulitis. Electronically Signed by Maged Huffman MD 07/12/2018 08:01 A
== END ==
LOC: M RAD 14:21
PROVIDERS: ATTEND Nurse Practitioner Family
DX: R10.9 Unspecified abdominal pain (principal); K57.30 Diverticulosis of large intestine without perforation or abscess without bleeding; Z90.5 Acquired absence of kidney
CPT/HCPCS: 74178; Q9963; Q9967

== ENCOUNTER → 2018-07-26 | Outpatient (CLI) | payer OTHER, MEDICAID ==
[~2018-07-26] MED LIST changes: +BREO1INH3 INH; +E-Z-GAS II EFFERVESCENT PACKET (SODIUM BICARB./CITRIC ACID/SIMETHICONE) As Ordered ONE; +E-Z-HD 98% w/w 340GM SUSP BTL As Ordered ONE; +E-Z-PAQUE 96% w/w SUSP 176GM BTL As Ordered ONE; -GASTROGRAFIN SOLUTION 30ML (Q9963) As Ordered ONE; -ISOVUE-370 76% 125ML VIAL (Q9967 PER ML) As Ordered ONE; +ONDA4TAB6 PO
--- NOTE | 2018-07-27 13:37 | REP ---
UPPER GI AIR CONTRAST AND SMALL BOWEL FOLLOW THROUGH The procedure was performed under the direct supervision of Dr. Garcia. The images were reviewed with Dr. Garcia The tilt tray driver film shows no organomegaly or pathological masses. The intestinal gas pattern is non-specific. Liquid barium and gas producing crystals were given in the erect position as well as liquid barium in the prone oblique position in order to perform a double contrast upper GI examination. Additionally liquid barium was given at the end of the examination in order to perform a small bowel follow through. The oral and pharyngeal stages of deglutition are unremarkable. Esophageal transport is prompt and efficient and there is no esophagitis, stricture, mucosal ring or hiatal hernia. Gastroesophageal reflux is not demonstrated on this examination. The stomach carroll are normally outlined. The rugal folds are smooth and regular. There is no gastritis neoplasm or ulcer disease. The duodenal carroll are normally outlined . The mucosal folds are smooth and regular. There is no duodenitis pancreatitis peptic ulcer disease or neoplasm. The visualized portion of the proximal small bowel appears normal in course and caliber. The barium column was followed through the small bowel to the level of the terminal ileum. Small bowel transit time is approximately 15 minutes . During fluoroscopy gentle palpation shows all loops are freely movable and pliable. There are no fixed or angulated loops. The small bowel mucosal pattern is normal in course and caliber. There is no transition to suggest a partial small-bowel obstruction. Spot filming of the terminal ileum shows it to be unremarkable. Impression: Essentially unremarkable double contrast upper GI and small bowel follow through examination. 2.1 minutes of fluoro time was utilized for this procedure. Reviewed by AVRIL Anderson 07/26/2018 04:54 P Electronically Signed by Yves Garcia MD 07/27/2018 01:29 P
== END ==
LOC: M RAD 09:35
PROVIDERS: ATTEND Nurse Practitioner Family
DX: K21.9 Gastro-esophageal reflux disease without esophagitis (principal)

== ENCOUNTER 2018-08-11 03:00 | Emergency (ER) | payer OTHER, MEDICAID ==
[~2018-08-11] VITALS: Ht 175.3 cm; Wt 66.0 kg
[~2018-08-11 03:00] MED LIST changes: -BREO1INH3 INH; -E-Z-GAS II EFFERVESCENT PACKET (SODIUM BICARB./CITRIC ACID/SIMETHICONE) As Ordered ONE; -E-Z-HD 98% w/w 340GM SUSP BTL As Ordered ONE; -E-Z-PAQUE 96% w/w SUSP 176GM BTL As Ordered ONE; -ONDA4TAB6 PO
[2018-08-11] MEDS ORDERED: BREO1INH3 INH (03:24)
[2018-08-11 03:34] LABS: BASO # 0.2 10^3/uL (0.0-0.2); EOS # 0.1 10^3/uL (0.0-0.50); EOS % 0.5 % (0.0-3.0); HEMATOCRIT 47.4 % (42.0-52.0); HEMOGLOBIN 16.3 g/dl (13.5-17.5); LYMPH # 2.3 10^3/uL (1.5-4.5); LYMPH % 13.6 % (24.0-44.0); MEAN CORPUSCULAR HEMOGLOBIN 32.3 pg (27.0-33.0); MEAN CORPUSCULAR HGB CONC 34.4 g/dl (32.0-36.5); MEAN CORPUSCULAR VOLUME 93.9 fl (80.0-96.0); MONO # 0.8 10^3/uL (0.0-0.8); NEUTROPHILS # 13.3 10^3/uL (1.8-7.7); NEUTROPHILS % 79.5 % (36.0-66.0); PLATELET COUNT, AUTOMATED 331 10^3/uL (150-450); RED BLOOD COUNT 5.05 10^6/uL (4.30-6.10); WHITE BLOOD COUNT 16.7 10^3/uL (4.0-10.0)
[2018-08-11 04:06] LABS: ALBUMIN 4.5 GM/DL (3.2-5.2); ALT/SGPT 25 U/L (12-78); AMYLASE 47 U/L (25-115); BILIRUBIN,DIRECT 0.1 MG/DL (0.0-0.2); BILIRUBIN,TOTAL 0.4 MG/DL (0.2-1.0); BLOOD UREA NITROGEN 13 MG/DL (7-18); CALCIUM LEVEL 9.8 MG/DL (8.5-10.1); CARBON DIOXIDE LEVEL 25 MEQ/L (21-32); CHLORIDE LEVEL 107 MEQ/L (98-107); CK-MB VALUE MASS < 1.0 NG/ML (<3.6); CPK CREATINE PHOSPHOKINASE 99 U/L (39-308); CREATININE FOR GFR 1.23 MG/DL (0.70-1.30); GLOMERULAR FILTRATION RATE > 60.0 (>56); GLUCOSE, FASTING 135 MG/DL (70-100); LIPASE 82 U/L (73-393); POTASSIUM SERUM 4.3 MEQ/L (3.5-5.1); SODIUM LEVEL 143 MEQ/L (136-145); TOTAL PROTEIN 7.7 GM/DL (6.4-8.2); TROPONIN I < 0.02 NG/ML (< 0.10)
[2018-08-11] MEDS ORDERED: NS 1,000 ML IV ONE (04:45)
[2018-08-11] MEDS ORDERED: ONDANSETRON 4MG/2ML VIAL (J2405) IV ONE (04:45)
[2018-08-11] MEDS ORDERED: MORPHINE 4 MG/ML 1ML VIAL/SYRINGE (J2270) IV PRN (04:45)
[2018-08-11 05:01] LABS: ETHYL ALCOHOL (ETHANOL) < 0.003 % (0.000-0.010); MB/CK RELATIVE INDEX 1.01 (< OR =4)
--- NOTE | 2018-08-11 06:24 | REPVR ---
EXAM: CT Abdomen and Pelvis Without Contrast EXAM DATE/TIME: 08/11/2018 4:45 AM CLINICAL HISTORY: 53 years old, male; Abdominal pain; Generalized; Prior surgery; Surgery date: 6+ months; Surgery type: Nephrectomy; Additional info: Intractable vomiting, surgically absent kidney TECHNIQUE: Imaging protocol: Axial computed tomography images of the abdomen and pelvis without contrast. Coronal and sagittal reformatted images were created and reviewed. Radiation optimization: All CT scans at this facility use at least one of these dose optimization techniques: automated exposure control; mA and/or kV adjustment per patient size (includes targeted exams where dose is matched to clinical indication); or iterative reconstruction. COMPARISON: CT ABD PELVIS W/O FOL BY WIT 07/11/2018 4:27 PM FINDINGS: ABDOMEN: Liver: Normal. No mass. Gallbladder and bile ducts: Normal. No calcified stones. No ductal dilation. Pancreas: Normal. No ductal dilation. Spleen: Normal. No splenomegaly. Adrenals: Normal. No mass. Kidneys and ureters: Prior post surgical left nephrectomy. Compensatory hypertrophy of the right kidney. Stomach and bowel: Since the prior CT there is nonspecific increased oval symmetric soft tissue attenuation or complex fluid within the high spermatic canals bilaterally. Appendix: No evidence of appendicitis. PELVIS: Bladder: Unremarkable as visualized. Reproductive: Unremarkable as visualized. ABDOMEN and PELVIS: Intraperitoneal space: Normal. No free air. No significant fluid collection. Bones/joints: Degenerative change of the spine. Soft tissues: Unremarkable. Vasculature: Calcification abdominal aorta. Lymph nodes: Normal. No enlarged lymph nodes. IMPRESSION: 1. Status post left nephrectomy. 2. No acute intra-abdominal process. Electronically signed by: Chelle Mcgrath On 08/11/2018 06:24:22 AM
[2018-08-11] MEDS ORDERED: ONDA4TAB6 PO (07:11)
[2018-08-11 07:25] VITALS: BP 135/62
== END 2018-08-11 07:38 | disposition home or self-care (01) ==
LOC: M ED 03:00
DX: K52.9 Noninfective gastroenteritis and colitis, unspecified (principal); F17.210 Nicotine dependence, cigarettes, uncomplicated; F12.90 Cannabis use, unspecified, uncomplicated; F10.99 Alcohol use, unspecified with unspecified alcohol-induced disorder; Z90.5 Acquired absence of kidney; Z79.51 Long term (current) use of inhaled steroids; Z79.899 Other long term (current) drug therapy; Z85.528 Personal history of other malignant neoplasm of kidney
CPT/HCPCS: 74176; 80048; 80076; 82150; 82550; 82553; 83690; 84484; 85025; 93041; 96361; 96374; 96375; 99284; G0480; J2270; J2405

== ENCOUNTER 2018-10-01 10:52 | Emergency (ER) | payer OTHER, MEDICAID ==
[~2018-10-01] VITALS: Ht 180.3 cm; Wt 68.2 kg
[~2018-10-01 10:52] MED LIST changes: +BREO1INH3 INH; +ONDA4TAB6 PO
[2018-10-01] MEDS ORDERED: SPIR1CAP INH (10:58)
[2018-10-01] MEDS ORDERED: IPRA0.00 (10:58)
[2018-10-01] MEDS ORDERED: DULO1CAP5 PO (10:58)
--- NOTE | 2018-10-01 12:10 | REP ---
RIGHT SHOULDER, THREE VIEWS: Three views, right shoulder performed. There is no acute fracture or dislocation. Tiny calcification above the acromioclavicular joint probably is ligamentous. There is narrowing of the acromioclavicular joint of a moderate degree. There are no other significant findings. IMPRESSION: No acute fracture or dislocation. Electronically Signed by Alexx Hernandez MD 10/02/2018 11:33 A
[2018-10-01] MEDS ORDERED: NAPR-837 PO (12:55)
[2018-10-01 12:59] VITALS: BP 175/80
== END 2018-10-01 13:00 | disposition home or self-care (01) ==
LOC: M ED 10:52
DX: S40.011A Contusion of right shoulder, initial encounter (principal); X50.9XXA Other and unspecified overexertion or strenuous movements or postures, initial encounter; Y92.410 Unspecified street and highway as the place of occurrence of the external cause; Z91.048 Other nonmedicinal substance allergy status; F17.210 Nicotine dependence, cigarettes, uncomplicated

== ENCOUNTER 2018-10-17 10:06 | Day surgery (SDC) | payer OTHER, MEDICAID ==
[~2018-10-17] VITALS: Ht 180.3 cm; Wt 65.8 kg
[~2018-10-17 10:06] MED LIST changes: +DULO1CAP5 PO; +IPRA0.00; +LIDOCAINE 2% INJ 100 MG/5 ML SDV (FOR ANES.) As Ordered ONE; +NAPR-837 PO; +NS 1,000 ML IV ONE; -OMEP40CA2 PO; +OMEP40CA97 PO; +SPIR1CAP INH; -TRAZ-163 PO; +TRAZ-257 PO; +propofoL 200 MG/20 ML VIAL As Ordered ONE
[2018-10-17] MEDS ORDERED: fentaNYL 100 MCG/2 ML INJECTION (J3010) As Ordered ONE (11:31)
--- NOTE | 2018-10-17 11:47 | ROOR ---
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 Procedure: Pre-Anesthesia Assessment: - The heart rate, respiratory rate, oxygen saturations, blood pressure, adequacy of pulmonary ventilation, and response to care were monitored throughout the procedure. The Endoscope was introduced through the mouth, and advanced to the second part of duodenum. The upper GI endoscopy was accomplished without difficulty. The patient tolerated the procedure well. Findings: The Z-line was regular and was found 42 cm from the incisors. Localized moderate mucosal changes characterized by an increased vascular pattern were found on the greater curvature of the stomach. Biopsies were taken with a cold forceps for histology. The exam was otherwise without abnormality. Impression: - Z-line regular, 42 cm from the incisors. - Increased vascular pattern mucosa in the greater curvature. Biopsied. - The examination was otherwise normal. Recommendation: - Await pathology results. - Discharge patient to home. - Continue present medications. - Await pathology results. - Telephone GI clinic for pathology results in 1 week. - Repeat upper endoscopy for surveillance based on pathology results. - Return to referring physician. - Check Portal Online for Path Results.([email or web address] - The findings and recommendations were discussed with the patient's family. Gustavo Rogers MD Gustavo Rogers MD 10/17/2018 11:47:18 AM Electronically signed by Gustavo Rogers MD Number of Addenda: 0 Note Initiated On: 10/17/2018 11:30 AM Estimated Blood Loss: Estimated blood loss: none.
[2018-10-17 11:51] VITALS: BP_DIAS 69
[2018-10-17 12:10] VITALS: BP_SYST 121
== END 2018-10-17 12:13 | disposition home or self-care (01) ==
LOC: M OPP 10:06
PROVIDERS: ATTEND Internal Medicine Gastroenterology
DX: K31.89 Other diseases of stomach and duodenum (principal); Z85.72 Personal history of non-Hodgkin lymphomas
CPT/HCPCS: 43239; 88305; J3010

== ENCOUNTER → 2018-10-19 | Outpatient (CLI) | payer OTHER, MEDICAID ==
[~2018-10-19] MED LIST changes: -LIDOCAINE 2% INJ 100 MG/5 ML SDV (FOR ANES.) As Ordered ONE; -NS 1,000 ML IV ONE; +OMEP40CA2 PO; -OMEP40CA97 PO; +TRAZ-163 PO; -TRAZ-257 PO; +VENL37.598; -propofoL 200 MG/20 ML VIAL As Ordered ONE
--- NOTE | 2018-10-22 17:22 | SLEEPHOME ---
DATE OF PROCEDURE: 10/19/2018 ORDERED BY: Gill Aguillon Diagnostic home sleep testing was performed due to concern for the obstructive sleep apnea syndrome. For testing a nocturnal T3 respiratory monitoring device was used. Continuous record was made of pulse, oxygen saturation, airflow, chest, abdominal strain and body position. 9 hours and 59 minutes of data were reviewed. There were 5 hours and 27 minutes marked as time in bed. During the interval marked time in bed there were 61 respiratory events identified of 10 seconds in duration or greater for respiratory event index of 11.2. The events were primarily obstructive. Baseline pulse rate 60 beats per minute, pulse rate ranged 48-104. Baseline saturation 92% saturations fell to 82%. Testing was performed both supine and nonsupine positions. IMPRESSION: Abnormal home sleep testing with repetitive respiratory events and oxygen desaturations to 82% with a respiratory event index of 11.2 is consistent with the obstructive sleep apnea syndrome. RECOMMENDATIONS: The patient should be referred for formal sleep evaluation.
== END ==
LOC: M SLEEP HO 09:37
PROVIDERS: ATTEND Nurse Practitioner Family
DX: G47.00 Insomnia, unspecified (principal)

== ENCOUNTER 2018-11-08 12:42 | Emergency (ER) | payer OTHER, MEDICAID ==
[~2018-11-08] VITALS: Ht 177.8 cm; Wt 65.9 kg
[~2018-11-08 12:42] MED LIST changes: -VENL37.598
[2018-11-08] MEDS ORDERED: VENL37.598 (12:56)
[2018-11-08 13:12] LABS: BASO # 0.1 10^3/uL (0.0-0.2); BASO % 1.3 % (0.0-1.0); EOS # 0.2 10^3/uL (0.0-0.50); EOS % 2.5 % (0.0-3.0); HEMATOCRIT 47.8 % (42.0-52.0); HEMOGLOBIN 16.7 g/dl (13.5-17.5); LYMPH % 21.8 % (24.0-44.0); MEAN CORPUSCULAR HEMOGLOBIN 32.5 pg (27.0-33.0); MEAN CORPUSCULAR HGB CONC 34.9 g/dl (32.0-36.5); MONO # 0.6 10^3/uL (0.0-0.8); MONO % 6.9 % (0.0-5.0); NEUTROPHILS % 67.3 % (36.0-66.0); PLATELET COUNT, AUTOMATED 329 10^3/uL (150-450); RED BLOOD COUNT 5.14 10^6/uL (4.30-6.10)
[2018-11-08] MEDS ORDERED: ALBUTEROL SULFATE 2.5 MG/0.5 ML INH NEB SOLN NEB ONE (13:15)
[2018-11-08] MEDS ORDERED: methylPREDNISolone INJ 125 MG/2 ML VIAL (J2930) IV ONE (13:15)
[2018-11-08] MEDS ORDERED: IPRATROPIUM 0.5MG/ALBUTEROL 2.5MG INH SOL UD 3ML (DUONEB)(J7620) NEB ONE (13:15)
--- NOTE | 2018-11-08 13:32 | REP ---
Portable chest x-ray: Single view. History: Chest pain. Comparison study: June 29, 2018. Findings: EKG monitoring electrodes overlie the chest. The lungs are well inflated and clear. The pleural angles are sharp. Heart size is normal. Pulmonary vasculature is not increased. Impression: Hyperinflation. Otherwise no acute disease. Electronically Signed by Yves Garcia MD 11/08/2018 01:24 P
[2018-11-08 13:52] LABS: BLOOD UREA NITROGEN 14 MG/DL (7-18); CALCIUM LEVEL 9.9 MG/DL (8.5-10.1); CARBON DIOXIDE LEVEL 26 MEQ/L (21-32); CHLORIDE LEVEL 104 MEQ/L (98-107); CK-MB VALUE MASS < 1.0 NG/ML (<3.6); CPK CREATINE PHOSPHOKINASE 102 U/L (39-308); GLOMERULAR FILTRATION RATE > 60.0 (>56); GLUCOSE, FASTING 125 MG/DL (70-100); MB/CK RELATIVE INDEX 0.98 (< OR =4); POTASSIUM SERUM 4.1 MEQ/L (3.5-5.1); SODIUM LEVEL 138 MEQ/L (136-145); TROPONIN I < 0.02 NG/ML (< 0.10)
[2018-11-08] MEDS ORDERED: PRED20TA PO (14:37)
[2018-11-08 14:46] VITALS: BP 136/75
--- NOTE | 2018-11-09 05:43 | ECGEPIP ---
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
== END 2018-11-08 15:00 | disposition home or self-care (01) ==
LOC: M ED 12:42
DX: J44.1 Chronic obstructive pulmonary disease with (acute) exacerbation (principal); K21.9 Gastro-esophageal reflux disease without esophagitis; Z79.899 Other long term (current) drug therapy; Z91.048 Other nonmedicinal substance allergy status; F17.210 Nicotine dependence, cigarettes, uncomplicated
CPT/HCPCS: 36415; 71045; 80048; 82550; 82553; 84484; 85025; 93005; 93041; 94640; 94760; 96374; 99285; J2930

== ENCOUNTER 2019-01-03 13:50 | Emergency (ER) | payer OTHER, MEDICAID ==
[~2019-01-03] VITALS: Ht 175.3 cm; Wt 68.2 kg
[~2019-01-03 13:50] MED LIST changes: +VENL37.598
[2019-01-03] MEDS ORDERED: BREO1INH3 (14:05)
[2019-01-03] MEDS ORDERED: SPIR12.9 (14:05)
[2019-01-03] MEDS ORDERED: OMEP-221 (14:05)
[2019-01-03] MEDS ORDERED: NS 1,000 ML IV ONE (14:30)
[2019-01-03] MEDS ORDERED: ASPIRIN 81 MG CHEW TABLET PO ONE (14:30)
[2019-01-03 14:44] LABS: BASO # 0.1 10^3/uL (0.0-0.2); BASO % 1.8 % (0.0-1.0); EOS # 0.3 10^3/uL (0.0-0.5); EOS % 4.1 % (0.0-3.0); HEMATOCRIT 43.2 % (42.0-52.0); HEMOGLOBIN 14.9 g/dl (13.5-17.5); LYMPH # 1.6 10^3/uL (1.5-5.0); LYMPH % 22.9 % (24.0-44.0); MEAN CORPUSCULAR HEMOGLOBIN 32.3 pg (27.0-33.0); MEAN CORPUSCULAR HGB CONC 34.5 g/dl (32.0-36.5); MEAN CORPUSCULAR VOLUME 93.5 fl (80.0-96.0); MONO # 0.7 10^3/uL (0.0-0.8); MONO % 10.4 % (0.0-5.0); NEUTROPHILS # 4.3 10^3/uL (1.5-8.5); NEUTROPHILS % 60.5 % (36.0-66.0); PLATELET COUNT, AUTOMATED 316 10^3/uL (150-450); RED BLOOD COUNT 4.62 10^6/uL (4.30-6.10); WHITE BLOOD COUNT 7.1 10^3/uL (4.0-10.0)
--- NOTE | 2019-01-03 14:59 | REP ---
CHEST: Two views. There is no evidence of acute infiltrate. No pleural effusion is seen. The heart is normal in size. The mediastinal silhouette is unremarkable. The visualized osseous structures are intact. IMPRESSION: No acute pulmonary disease. Electronically Signed by Alexx Hernandez MD 01/03/2019 05:01 P
[2019-01-03 15:02] LABS: INR 0.95; PROTHROMBIN TIME 12.4 SECONDS (11.8-14.0)
[2019-01-03 15:05] LABS: D-DIMER QUANT 342.36 ng/ml (<500)
[2019-01-03 15:07] LABS: ALBUMIN 3.5 GM/DL (3.2-5.2); ALT/SGPT 25 U/L (12-78); BILIRUBIN,DIRECT < 0.1 MG/DL (0.0-0.2); BILIRUBIN,TOTAL 0.3 MG/DL (0.2-1.0); BLOOD UREA NITROGEN 13 MG/DL (7-18); CALCIUM LEVEL 9.5 MG/DL (8.5-10.1); CARBON DIOXIDE LEVEL 24 MEQ/L (21-32); CHLORIDE LEVEL 107 MEQ/L (98-107); CK-MB VALUE MASS < 1.0 NG/ML (<3.6); CPK CREATINE PHOSPHOKINASE 93 U/L (39-308); CREATININE FOR GFR 1.23 MG/DL (0.70-1.30); GLOMERULAR FILTRATION RATE > 60.0 (>56); GLUCOSE, FASTING 90 MG/DL (70-100); LIPASE 87 U/L (73-393); MB/CK RELATIVE INDEX 1.08 (< OR =4); POTASSIUM SERUM 4.4 MEQ/L (3.5-5.1); SODIUM LEVEL 140 MEQ/L (136-145); TOTAL PROTEIN 6.5 GM/DL (6.4-8.2); TROPONIN I < 0.02 NG/ML (< 0.10)
[2019-01-03 16:46] VITALS: BP 146/93
--- NOTE | 2019-01-03 20:39 | ECGEPIP ---
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
== END 2019-01-03 16:57 | disposition home or self-care (01) ==
LOC: M ED 13:50
DX: R07.89 Other chest pain (principal); J44.9 Chronic obstructive pulmonary disease, unspecified; M54.2 Cervicalgia; M54.5 Low back pain; R05 Cough; F17.210 Nicotine dependence, cigarettes, uncomplicated; Z85.528 Personal history of other malignant neoplasm of kidney

== ENCOUNTER → 2019-01-09 | Outpatient (REF) | payer OTHER, MEDICAID ==
[~2019-01-09] MED LIST changes: +BREO1INH3; +OMEP-221; +SPIR12.9
[2019-01-09 12:06] LABS: HEMOGLOBIN A1c 5.7 %
[2019-01-09 12:22] LABS: ALBUMIN 3.6 GM/DL (3.2-5.2); BLOOD UREA NITROGEN 13 MG/DL (7-18); CALCIUM LEVEL 9.6 MG/DL (8.5-10.1); CARBON DIOXIDE LEVEL 26 MEQ/L (21-32); CHLORIDE LEVEL 106 MEQ/L (98-107); CHOLESTEROL LEVEL 244 MG/DL (<200); CREATININE FOR GFR 1.05 MG/DL (0.70-1.30); FREE T4 0.85 NG/DL (0.76-1.46); GLOMERULAR FILTRATION RATE > 60.0 (>56); GLUCOSE, FASTING 67 MG/DL (70-100); HDL CHOLESTEROL 57 MG/DL (>40); LDL CHOLESTEROL 161 MG/DL (<100); NON-HDL-C 187 MG/DL; PHOSPHORUS LEVEL 2.5 MG/DL (2.5-4.9); POTASSIUM SERUM 4.6 MEQ/L (3.5-5.1); SODIUM LEVEL 139 MEQ/L (136-145); TOTAL 25(OH) VITAMIN D 31.6 NG/ML (30.0-100.0); TRIGLYCERIDES LEVEL 130 MG/DL (<150)
== END ==
LOC: M SFHCPLAZ 09:36
PROVIDERS: ATTEND Nurse Practitioner Family
DX: E78.5 Hyperlipidemia, unspecified (principal); E03.9 Hypothyroidism, unspecified; R73.09 Other abnormal glucose; E55.9 Vitamin D deficiency, unspecified
CPT/HCPCS: 36415; 80061; 80069; 82306; 83036; 84439; 84443; G0463

== ENCOUNTER → 2019-01-29 | Outpatient (CLI) | payer OTHER, MEDICAID ==
--- NOTE | 2019-02-01 00:17 | SLEEPCENT ---
DATE OF PROCEDURE: 01/29/2019 ORDERED BY: LUIS Rubio Nocturnal polysomnography was performed for evaluation of sleep physiology in this patient with a history of excessive somnolence and nonrestorative sleep who has comorbidities of obstructive lung disease and acid reflux disease. 6 hours and 47 minutes of data were reviewed. There were 333.5 minutes of sleep identified. Sleep latency was mildly prolonged at 17.5 minutes. Rapid eye movement (REM) latency was prolonged at 143.5 minutes. Sleep architecture was fair with some fragmentation early in the study. Overall sleep efficiency was 83.4%. The patient's electrocardiogram showed a sinus rhythm with an average heart rate of 50 beats per minute. EEG showed normal waveforms for awake and sleep. There were 43 respiratory events identified of 10 seconds in duration or greater for an apnea-hypopnea index of 7.7. The events were primarily obstructive and more frequent in the supine posture. Arousals from respiratory events occurred seven times per hour and oxygen desaturations were seen into the 80s. There was also some activity in the limb leads with three trains of 30 events. Limb movement arousal index of 7.7. IMPRESSION: Mild obstructive sleep apnea syndrome (G47.33). Apnea-hypopnea index 7.7. RECOMMENDATIONS: At minimum, the patient should be encouraged to participate in sleep position retraining for avoidance of the supine posture. If symptoms persist, referral back to the sleep disorder center for pressure therapy should be considered.
== END ==
LOC: M SLEEP 19:31
PROVIDERS: ATTEND Nurse Practitioner Family
DX: G47.33 Obstructive sleep apnea (adult) (pediatric) (principal)

== ENCOUNTER → 2019-03-18 | Outpatient (CLI) | payer OTHER, MEDICAID ==
[~2019-03-18] MED LIST changes: -OMEP40CA2 PO; +OMEP40CA97 PO
--- NOTE | 2019-03-21 09:54 | SLEEPCENT ---
DATE OF PROCEDURE: 03/18/2019 ORDERED BY: LUIS Rubio Nocturnal polysomnography was performed for the titration of pressure therapy in this patient with a clinical diagnosis of obstructive sleep apnea syndrome confirmed by home testing revealing respiratory event index of 7.7. For testing the patient was fit with a ResMed AirFit F20 full-face mask of large size; 4 cm of water pressure were applied to the circuit and the lights were extinguished. 6 hours and 44 minutes of data were reviewed. There were 289 minutes of sleep identified. Sleep latency was normal at 9 minutes. Rapid eye movement (REM) latency was mildly delayed at 155 minutes. Sleep architecture was fairly good with 2 REM cycles. Overall sleep efficiency 72.7%. The patient's electrocardiogram showed a sinus rhythm with an average heart rate of 56 beats per minute. Electroencephalogram (EEG) showed normal waveforms for awake and sleep. Respiratory events were reasonably well palliated with CPAP at a pressure of +5. There was some limb activity noted particularly early in the study. Limb movement arousal index was 9.1. IMPRESSION: Obstructive sleep apnea syndrome (G47.33). RECOMMENDATIONS: Nightly use of pressure therapy 5 cm of water.
== END ==
LOC: M SLEEP 19:41
PROVIDERS: ATTEND Nurse Practitioner Family
DX: G47.33 Obstructive sleep apnea (adult) (pediatric) (principal)

== ENCOUNTER → 2019-04-04 | Outpatient (REF) | payer OTHER, MEDICAID ==
[2019-04-04 18:53] LABS: APPEARANCE, URINE HAZY (CLEAR); BACTERIA, URINE AUTO NEGATIVE (NEGATIVE); BILIRUBIN, URINE AUTO NEGATIVE (NEGATIVE); BLOOD, URINE BLOOD NEGATIVE (NEGATIVE); COLOR, URINE YELLOW (YELLOW); GLUCOSE, URINE (UA) AUTO NEGATIVE (NEGATIVE); KETONE, URINE AUTO TRACE mg/dL (NEGATIVE); LEUKOCYTE ESTERASE, URINE AUTO NEGATIVE (NEGATIVE); MUCUS, URINE SMALL (NEGATIVE); NITRITE, URINE AUTO NEGATIVE (NEGATIVE); PROTEIN, URINE AUTO NEGATIVE (NEGATIVE); RBC, URINE AUTO 0 /HPF (0-3); SPECIFIC GRAVITY URINE AUTO 1.019 (1.002-1.035); SQUAMOUS EPITHELIAL CELL UR AU 0 /HPF (0-6); UROBILINOGEN, URINE AUTO 0.2 mg/dL (0.0-2.0); WBC, URINE AUTO 0 /HPF (0-3)
== END ==
LOC: M SMT 17:00
PROVIDERS: ATTEND Nurse Practitioner Women's Health
DX: Z85.528 Personal history of other malignant neoplasm of kidney (principal); Z79.899 Other long term (current) drug therapy
CPT/HCPCS: 81001; 87086; G0463

== ENCOUNTER 2019-05-23 07:37 | Emergency (ER) | payer OTHER, MEDICAID ==
[~2019-05-23] VITALS: Ht 175.3 cm; Wt 69.8 kg
[2019-05-23 07:37] VITALS: BP 133/76
[~2019-05-23 07:37] MED LIST changes: -TRAZ-163 PO; +TRAZ-257 PO
[2019-05-23] MEDS ORDERED: AUGM875T28 PO (07:54)
[2019-05-23] MEDS ORDERED: CIPRODEX OTIC (07:54)
[2019-05-23] MEDS ORDERED: ACETAMINOPHEN 325 MG TAB PO ONE (08:00)
== END 2019-05-23 08:01 | disposition home or self-care (01) ==
LOC: M ED 07:37
DX: H60.91 Unspecified otitis externa, right ear (principal); J44.9 Chronic obstructive pulmonary disease, unspecified; F17.218 Nicotine dependence, cigarettes, with other nicotine-induced disorders

== ENCOUNTER 2019-06-12 08:34 | Day surgery (SDC) | payer OTHER, MEDICAID ==
[~2019-06-12] VITALS: Ht 175.3 cm; Wt 70.3 kg
[~2019-06-12 08:34] MED LIST changes: +AUGM875T28 PO; +CIPRODEX OTIC; -FLUO20CA19 PO; +FLUO20CA22 PO; +NS 1,000 ML IV ONE
[2019-06-12] MEDS ORDERED: fentaNYL 100 MCG/2 ML INJECTION (J3010) As Ordered ONE (09:44)
[2019-06-12] MEDS ORDERED: LIDOCAINE 2% INJ 100 MG/5 ML SDV (FOR ANES.) As Ordered ONE (09:48)
[2019-06-12] MEDS ORDERED: propofoL 200 MG/20 ML VIAL As Ordered ONE (09:48)
[2019-06-12 11:08] VITALS: BP 136/63
--- NOTE | 2019-06-12 15:34 | ROOR ---
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 Procedure: Pre-Anesthesia Assessment: - The heart rate, respiratory rate, oxygen saturations, blood pressure, adequacy of pulmonary ventilation, and response to care were monitored throughout the procedure. The Endoscope was introduced through the mouth, and advanced to the second part of duodenum. The upper GI endoscopy was accomplished without difficulty. The patient tolerated the procedure well. Findings: The Z-line was regular and was found 40 cm from the incisors. A medium scar was found on the greater curvature of the stomach. Biopsies were taken with a cold forceps in the gastric fundus, in the gastric body and on the greater curvature of the gastric body for histology. The exam of the duodenum was otherwise normal. Impression: - Z-line regular, 40 cm from the incisors. - Scar in the greater curvature of the stomach. - Biopsies were taken with a cold forceps for histology in the gastric fundus, in the gastric body and on the greater curvature of the gastric body. - The examination was otherwise normal. Recommendation: - Await pathology results. - Discharge patient to home. - Continue present medications. - Await pathology results. - Telephone GI clinic for pathology results in 1 week. - Return to referring physician. - Repeat upper endoscopy for surveillance based on pathology results. - The findings and recommendations were discussed with the patient's family. Gustavo Rogers MD Gustavo Rogers MD 06/12/2019 10:22:57 AM Electronically signed by Gustavo Rogers MD Number of Addenda: 0 Note Initiated On: 06/12/2019 10:07 AM Estimated Blood Loss: Estimated blood loss: none.
== END 2019-06-12 11:09 | disposition home or self-care (01) ==
LOC: M OPP 08:34
PROVIDERS: ATTEND Internal Medicine Gastroenterology
DX: K31.89 Other diseases of stomach and duodenum (principal); R10.13 Epigastric pain; B96.81 Helicobacter pylori [H. pylori] as the cause of diseases classified elsewhere; C88.4 Extranodal marginal zone B-cell lymphoma of mucosa-associated lymphoid tissue [MALT-lymphoma]; F17.210 Nicotine dependence, cigarettes, uncomplicated; Z79.899 Other long term (current) drug therapy; Z91.048 Other nonmedicinal substance allergy status; Z92.3 Personal history of irradiation
CPT/HCPCS: 43239; 88305; J3010

== ENCOUNTER → 2019-08-22 | Outpatient (CLI) | payer OTHER, MEDICAID ==
[~2019-08-22] MED LIST changes: -NS 1,000 ML IV ONE
--- NOTE | 2019-08-23 00:43 | REP ---
Clinical: Obstructive sleep apnea . Comparison: 01/03/2019 . Technique: PA and lateral. Findings: The mediastinum and cardiac silhouette are normal. The lung jay are clear and without acute consolidation, effusion, or pneumothorax. The skeletal structures are intact and normal. Impression: 1. No acute cardiopulmonary process. Electronically Signed by Maged Huffman MD 08/23/2019 12:34 A
== END ==
LOC: M RAD 12:04
PROVIDERS: ATTEND Nurse Practitioner Family
DX: G47.33 Obstructive sleep apnea (adult) (pediatric) (principal)

== ENCOUNTER → 2019-09-04 | Outpatient (CLI) | payer OTHER, MEDICAID ==
[~2019-09-04] MED LIST changes: +METHACHOLINE KIT (J7674) INH ONE
--- NOTE | 2019-09-04 14:01 | PFTRPT ---
Height: 70.00 Inches Weight: 154.00 Lbs BSA: 1.87 Diagnosis: J43.9 DATE OF STUDY: 09/04/2019 ORDERED BY: Priscila Hylton INTERPRETATION: Study of excellent technical quality. Under protocol, methacholine was administered. At a dose of 10 mg (63.875 CDUs), a 24% decline in the FEV1 was noted. PC of 5.55 is significant. Flow rates did return to baseline post bronchodilator administration. IMPRESSION: Positive methacholine challenge study. MTDD
== END ==
LOC: M CARPUL 12:37
PROVIDERS: ATTEND Nurse Practitioner Family
DX: J43.9 Emphysema, unspecified (principal)
CPT/HCPCS: 94070; 95070; J7674

== ENCOUNTER → 2019-09-06 | Outpatient (CLI) | payer OTHER, MEDICAID ==
[~2019-09-06] MED LIST changes: -METHACHOLINE KIT (J7674) INH ONE
--- NOTE | 2019-09-06 11:59 | REP ---
CT CHEST WITHOUT IV CONTRAST: CT chest performed without IV contrast. Sagittal and coronal reconstruction images are performed. Comparison made with prior CT of 09/03/2017. Several bullae are seen in the left upper lobe. These have mild increased in size since the prior study. There is mild diffuse interstitial fibrotic change bilaterally as well as mild diffuse bronchiectasis. There is no acute infiltrate. Heart is not enlarged. There is no pleural or pericardial effusion. There is mild atherosclerotic calcification of the thoracic aorta with no aneurysm. No mediastinal or axillary adenopathy is seen. There are degenerative changes of the spine. The visualized upper abdominal structures are grossly unremarkable. The patient has had a prior left nephrectomy. IMPRESSION: Mild increase in size of multiple bullae in the left upper lobe. Mild diffuse interstitial fibrosis and bronchiectasis. Electronically Signed by Alexx Hernandez MD 09/06/2019 12:03 P
== END ==
LOC: M RAD 10:03
PROVIDERS: ATTEND Nurse Practitioner Family
DX: J43.9 Emphysema, unspecified (principal)

== ENCOUNTER 2019-10-30 23:29 | Emergency (ER) | payer OTHER, MEDICAID ==
[~2019-10-30] VITALS: Ht 170.2 cm; Wt 65.9 kg
[2019-10-30 23:30] VITALS: BP 107/62
[2019-10-31] MEDS ORDERED: PRED20TA PO (13:58)
== END 2019-10-30 23:59 | disposition left against medical advice (07) ==
LOC: M ED 23:29
DX: Z53.21 Procedure and treatment not carried out due to patient leaving prior to being seen by health care provider (principal)

== ENCOUNTER 2019-10-31 13:15 | Emergency (ER) | payer OTHER, MEDICAID ==
[~2019-10-31] VITALS: Ht 175.3 cm; Wt 69.2 kg
[2019-10-31] MEDS ORDERED: PRED20TA PO (13:58)
[2019-10-31 14:15] VITALS: BP 143/63
== END 2019-10-31 14:18 | disposition home or self-care (01) ==
LOC: M ED 13:15
DX: S60.561A Insect bite (nonvenomous) of right hand, initial encounter (principal); W57.XXXA Bitten or stung by nonvenomous insect and other nonvenomous arthropods, initial encounter; Y92.89 Other specified places as the place of occurrence of the external cause; J44.9 Chronic obstructive pulmonary disease, unspecified; F17.218 Nicotine dependence, cigarettes, with other nicotine-induced disorders; F12.10 Cannabis abuse, uncomplicated; Y93.9 Activity, unspecified; Y99.9 Unspecified external cause status

== ENCOUNTER → 2020-02-05 | Outpatient (REF) | payer OTHER, MEDICAID ==
[2020-02-05 10:57] LABS: HEMOGLOBIN A1c 5.5 %
[2020-02-05 11:10] LABS: ALBUMIN 3.5 GM/DL (3.2-5.2); ALT/SGPT 43 U/L (12-78); BILIRUBIN,TOTAL 0.3 MG/DL (0.2-1.0); BLOOD UREA NITROGEN 16 MG/DL (7-18); CALCIUM LEVEL 9.3 MG/DL (8.5-10.1); CARBON DIOXIDE LEVEL 26 MEQ/L (21-32); CHLORIDE LEVEL 109 MEQ/L (98-107); CHOLESTEROL LEVEL 208 MG/DL (<200); CREATININE FOR GFR 1.07 MG/DL (0.70-1.30); FREE T4 0.81 NG/DL (0.76-1.46); GLOMERULAR FILTRATION RATE > 60.0 (>56); GLUCOSE, FASTING 76 MG/DL (70-100); HDL CHOLESTEROL 52 MG/DL (>40); LDL CHOLESTEROL 127 MG/DL (<100); NON-HDL-C 156 MG/DL; POTASSIUM SERUM 4.4 MEQ/L (3.5-5.1); SODIUM LEVEL 140 MEQ/L (136-145); TOTAL PROTEIN 6.6 GM/DL (6.4-8.2); TRIGLYCERIDES LEVEL 145 MG/DL (<150)
[2020-02-05 11:16] LABS: TOTAL 25(OH) VITAMIN D 38.5 NG/ML (30.0-100.0)
== END ==
LOC: M SFHCPLAZ 08:58
PROVIDERS: ATTEND Nurse Practitioner Family
DX: E55.9 Vitamin D deficiency, unspecified (principal); E03.9 Hypothyroidism, unspecified; E78.5 Hyperlipidemia, unspecified; R73.09 Other abnormal glucose
CPT/HCPCS: 36415; 80053; 80061; 82306; 83036; 84439; 84443; G0463

== ENCOUNTER → 2020-03-06 | Outpatient (CLI) | payer OTHER, MEDICAID | LOC: M LABSMTC 09:46 | PROVIDERS: ATTEND Anesthesiology | DX: Z01.812 Encounter for preprocedural laboratory examination (principal); Z20.828 Contact with and (suspected) exposure to other viral communicable diseases ==

== ENCOUNTER → 2020-05-18 | Outpatient (CLI) | payer OTHER, MEDICAID ==
[~2020-05-18] MED LIST changes: +CIPR7.5D5 OTIC; -CIPRODEX OTIC; +GABA-282 PO; -GABA-843 PO
--- NOTE | 2020-05-18 08:54 | REP ---
INDICATION: ELEVATED BLOOD PRESSURE COMPARISON: None TECHNIQUE: Real time flood scale ultrasound examination using curved array transducer followed by color Doppler evaluation of the renal vasculature. FINDINGS: Patient is status post left nephrectomy for renal cell carcinoma. The right kidney is normal in reniform shape in appearance measuring 12.3 x 6.0 x 5.0 cm without hydronephrosis. Partial duplication to the proximal collecting system cannot be excluded. Color Doppler evaluation demonstrates normal renal vasculature.. Peak aortic velocity: 78.3 centimeters/second RIGHT KIDNEY Renal arterial velocity: 118 centimeters/second Renal-aortic ratio: 1.5 Intrarenal resistive indices: 0.61-0.65 Intrarenal acceleration times: 0.020-0.032 IMPRESSION: 1. Right kidney appears normal. Prior left nephrectomy. 2. Doppler interegation without sonographic evidence for renal arterial stenosis. <Electronically signed by Maged Huffman > 05/18/20 [id number]
--- NOTE | 2020-05-18 09:23 | REP ---
INDICATION: ELEVATED BLOOD PRESSURE COMPARISON: None TECHNIQUE: Real time B-mode ultrasound examination using curved array transducer. FINDINGS: Bladder is normal in appearance without wall thickening or mass lesion. Ureteral jets were not identified during exam. Prevoid bladder measures 5.5 x 6.8 x 4.2 cm (103 cc). Postvoid bladder was completely empty. Postvoid residual: 0% IMPRESSION: 1. No obvious bladder abnormality appreciated by ultrasound. <Electronically signed by Maged Huffman > 05/18/20 [id number]
== END ==
LOC: M RAD 07:59
PROVIDERS: ATTEND Nurse Practitioner Family
DX: R03.0 Elevated blood-pressure reading, without diagnosis of hypertension (principal); Z90.5 Acquired absence of kidney; R35.0 Frequency of micturition

== ENCOUNTER 2020-08-21 14:04 | Emergency (ER) | payer OTHER, MEDICAID ==
[~2020-08-21] VITALS: Ht 170.2 cm; Wt 86.9 kg
[~2020-08-21 14:04] MED LIST changes: +NAPR-849 PO; -NAPR250T4 PO
[2020-08-21] MEDS ORDERED: BUPR150T12 PO (14:10)
[2020-08-21 15:00] LABS: BASO # 0.1 10^3/uL (0.0-0.2); BASO % 0.9 % (0.0-1.0); EOS # 0.2 10^3/uL (0.0-0.5); HEMATOCRIT 49.2 % (42.0-52.0); LYMPH % 13.1 % (24.0-44.0); MEAN CORPUSCULAR HEMOGLOBIN 31.7 pg (27.0-33.0); MEAN CORPUSCULAR HGB CONC 34.6 g/dl (32.0-36.5); MEAN CORPUSCULAR VOLUME 91.8 fl (80.0-96.0); MONO # 0.7 10^3/uL (0.0-0.8); MONO % 4.9 % (2.0-8.0); NEUTROPHILS # 11.9 10^3/uL (1.5-8.5); NEUTROPHILS % 79.6 % (36.0-66.0); PLATELET COUNT, AUTOMATED 370 10^3/uL (150-450); RED BLOOD COUNT 5.36 10^6/uL (4.30-6.10)
[2020-08-21] MEDS ORDERED: PANTOPRAZOLE 40MG VIAL (C9113 PER 1) IV ONE (15:30)
[2020-08-21] MEDS ORDERED: ONDANSETRON 4MG/2ML VIAL IV ONE (15:30)
[2020-08-21] MEDS ORDERED: NS 1,000 ML IV ONE (15:30)
[2020-08-21 15:33] LABS: ALBUMIN 4.2 GM/DL (3.2-5.2); ALT/SGPT 32 U/L (12-78); BILIRUBIN,DIRECT 0.2 MG/DL (0.0-0.2); BILIRUBIN,TOTAL 0.6 MG/DL (0.2-1.0); LIPASE 69 U/L (73-393); TOTAL PROTEIN 7.6 GM/DL (6.4-8.2)
[2020-08-21] MEDS ORDERED: ISOVUE-370 76% 100ML VIAL As Ordered ONE (15:43)
--- NOTE | 2020-08-21 16:15 | REP ---
INDICATION: Abdominal pain. COMPARISON: 08/11/2018 a noncontrast enhanced exam TECHNIQUE: Standard helical technique after the intravenous administration of 100 cc Isovue 370 no oral bowel preparatory contrast was given prior to the exam. FINDINGS: Mild chronic changes seen in the lung bases status quo. There are no pleural or pericardial effusions. The liver, gallbladder, spleen, pancreas, adrenal glands, and right kidney are within normal limits. Patient is status post left nephrectomy. The abdominal aorta and para-aortic regions are within normal limits. There is no free fluid or free air. The bowel loops and the mesenteries are within normal limits. There is no evidence of a mass or adenopathy. Bone window technique throughout the exam shows the osseous structures to be stable in appearance. IMPRESSION: There is no evidence of acute disease. Findings and limitations as described above. <Electronically signed by Bear Cleary > 08/21/20 [id number]
[2020-08-21] MEDS ORDERED: KETOROLAC 30 MG/ML 1ML VIAL IV ONE (16:30)
[2020-08-21 16:36] LABS: CK-MB VALUE MASS < 1.0 NG/ML (<3.6); CPK CREATINE PHOSPHOKINASE 98 U/L (39-308); MB/CK RELATIVE INDEX 1.02 (< OR =4); TROPONIN I < 0.02 NG/ML (< 0.10)
[2020-08-21] MEDS ORDERED: HALOPERIDOL 5MG/ML VIAL (J1630 PER 1) IV ONE (16:50)
[2020-08-21] MEDS ORDERED: ZOFR4TAB16 PO (18:28)
[2020-08-21 18:46] VITALS: BP 150/82
--- NOTE | 2020-08-22 06:20 | ECGEPIP ---
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
== END 2020-08-21 18:58 | disposition home or self-care (01) ==
LOC: M ED 14:04
DX: E86.0 Dehydration (principal); R11.2 Nausea with vomiting, unspecified; K21.9 Gastro-esophageal reflux disease without esophagitis; E87.2 Acidosis; G47.30 Sleep apnea, unspecified; J44.9 Chronic obstructive pulmonary disease, unspecified
CPT/HCPCS: 74177; 80047; 80076; 81001; 82550; 82553; 83605; 83690; 84484; 85025; 93005; 96361; 96374; 96375; 99284; C9113; J1630; J1885; J2405; Q9967

== ENCOUNTER → 2020-08-31 | Outpatient (REF) | payer OTHER, MEDICAID ==
[~2020-08-31] MED LIST changes: +BUPR150T12 PO; +GABA-283 PO; -GABA-845 PO; +ZOFR4TAB16 PO
[2020-08-31 10:49] LABS: HEMOGLOBIN A1c 5.3 %
[2020-08-31 11:02] LABS: ALBUMIN 3.6 GM/DL (3.2-5.2); ALT/SGPT 30 U/L (12-78); BILIRUBIN,TOTAL 0.3 MG/DL (0.2-1.0); BLOOD UREA NITROGEN 19 MG/DL (7-18); CALCIUM LEVEL 9.8 MG/DL (8.5-10.1); CARBON DIOXIDE LEVEL 28 MEQ/L (21-32); CHLORIDE LEVEL 108 MEQ/L (98-107); CHOLESTEROL LEVEL 236 MG/DL (<200); CHOLESTEROL RISK RATIO 4.068 (<5); CREATININE FOR GFR 1.03 MG/DL (0.70-1.30); FREE T4 0.95 NG/DL (0.76-1.46); GLOMERULAR FILTRATION RATE > 60.0 (>56); GLUCOSE, FASTING 97 MG/DL (70-100); HDL CHOLESTEROL 58 MG/DL (>40); LDL CHOLESTEROL 153 MG/DL (<100); NON-HDL-C 178 MG/DL; POTASSIUM SERUM 4.9 MEQ/L (3.5-5.1); SODIUM LEVEL 138 MEQ/L (136-145); TOTAL PROTEIN 6.8 GM/DL (6.4-8.2); TRIGLYCERIDES LEVEL 127 MG/DL (<150)
== END ==
LOC: M SFHCPLAZ 08:32
PROVIDERS: ATTEND Nurse Practitioner Family
DX: E78.5 Hyperlipidemia, unspecified (principal); E03.9 Hypothyroidism, unspecified; R73.09 Other abnormal glucose; Z90.5 Acquired absence of kidney
CPT/HCPCS: 36415; 80053; 80061; 83036; 84439; 84443; G0463

== ENCOUNTER 2021-07-12 12:35 | Emergency (ER) | payer OTHER, MEDICAID ==
[~2021-07-12] VITALS: Ht 170.2 cm; Wt 78.0 kg
[~2021-07-12 12:35] MED LIST changes: +DOXY-443 PO; -DOXY100C37 PO; -LEVO500T3; +LEVO500T4; -OMEP-221; +OMEP40CA4 PO; +OMEP40CA5; -OMEP40CA97 PO
[2021-07-12 14:41] LABS: RSV AMPLIFICATION NEGATIVE (NEGATIVE)
[2021-07-12] MEDS ORDERED: GNP15SYP PO (15:20)
[2021-07-12] MEDS ORDERED: FLON1SPR NARES (15:20)
[2021-07-12] MEDS ORDERED: PRED20TA PO (15:20)
[2021-07-12 15:43] VITALS: BP 119/72
== END 2021-07-12 16:03 | disposition home or self-care (01) ==
LOC: M ED 12:35
DX: J20.9 Acute bronchitis, unspecified (principal); R06.02 Shortness of breath; K21.9 Gastro-esophageal reflux disease without esophagitis; J44.9 Chronic obstructive pulmonary disease, unspecified; F17.200 Nicotine dependence, unspecified, uncomplicated; Z91.048 Other nonmedicinal substance allergy status; Z79.899 Other long term (current) drug therapy

== ENCOUNTER 2023-01-24 12:25 | Emergency (ER) | payer OTHER, MEDICAID ==
[~2023-01-24] VITALS: Ht 175.3 cm; Wt 68.2 kg
[~2023-01-24 12:25] MED LIST changes: +FLON1SPR NARES; -GABA-283 PO; +GABA-284 PO; +GNP15SYP PO; +LEVO1TAB39; -LEVO500T4
[2023-01-24 16:30] VITALS: BP 153/86; TEMP 99.6; O2SAT 95
== END 2023-01-24 19:35 | disposition left against medical advice (07) ==
LOC: M ED 12:25
DX: Z53.21 Procedure and treatment not carried out due to patient leaving prior to being seen by health care provider (principal)

== ENCOUNTER → 2023-01-30 | Outpatient (CLI) | payer OTHER, MEDICAID ==
[2023-01-30 17:31] LABS: BASO # 0.1 10^3/uL (0.0-0.2); BASO % 0.9 % (0.0-1.0); EOS # 0.4 10^3/uL (0.0-0.5); EOS % 4.7 % (0.0-3.0); HEMATOCRIT 48.5 % (42.0-52.0); HEMOGLOBIN 16.5 g/dl (13.5-17.5); LYMPH # 2.2 10^3/uL (1.5-5.0); LYMPH % 25.9 % (24.0-44.0); MEAN CORPUSCULAR HEMOGLOBIN 31.5 pg (27.0-33.0); MEAN CORPUSCULAR VOLUME 92.7 fl (80.0-96.0); MONO # 0.9 10^3/uL (0.0-0.8); NEUTROPHILS # 4.9 10^3/uL (1.5-8.5); NEUTROPHILS % 57.2 % (36.0-66.0); PLATELET COUNT, AUTOMATED 299 10^3/uL (150-450); RED BLOOD COUNT 5.23 10^6/uL (4.30-6.10); WHITE BLOOD COUNT 8.6 10^3/uL (4.0-10.0)
[2023-01-30 17:58] LABS: ALBUMIN 3.9 G/DL (3.2-5.2); ALKALINE PHOSPHATASE 80 U/L (46-116); ALT/SGPT 28 U/L (7.0-40); AST/SGOT 17 U/L (<34); BILIRUBIN,TOTAL 0.4 MG/DL (0.3-1.2); BLOOD UREA NITROGEN 16 MG/DL (9-23); CALCIUM LEVEL 9.7 MG/DL (8.5-10.1); CARBON DIOXIDE LEVEL 28 MMOL/L (20-31); CHLORIDE LEVEL 108 MMOL/L (98-107); CHOLESTEROL LEVEL 243 MG/DL (<200); CHOLESTEROL RISK RATIO 4.86 (<5); CREATININE FOR GFR 1.02 MG/DL (0.70-1.30); FREE T4 0.96 NG/DL (0.89-1.76); GLOMERULAR FILTRATION RATE > 60.0 (>56); GLUCOSE, FASTING 88 MG/DL (60-100); LDL CHOLESTEROL 149.8 MG/DL (<100); POTASSIUM SERUM 4.6 MMOL/L (3.5-5.1); SODIUM LEVEL 139 MMOL/L (136-145); THYROID STIMULATING HORMONE 3.387 uIU/ML (0.55-4.78); TOTAL 25(OH) VITAMIN D 44.6 NG/ML (20.0-100.0); TOTAL PROTEIN 6.8 G/DL (5.7-8.2); TRIGLYCERIDES LEVEL 216 MG/DL (<150)
[2023-01-30 18:26] LABS: HEMOGLOBIN A1c 5.2 % (4.0-6.0)
== END ==
LOC: M PLALAB 15:41
PROVIDERS: ATTEND Nurse Practitioner Family
DX: E78.5 Hyperlipidemia, unspecified (principal); E55.9 Vitamin D deficiency, unspecified; E03.9 Hypothyroidism, unspecified; R73.09 Other abnormal glucose

== ENCOUNTER → 2023-07-21 | Outpatient (CLI) | payer OTHER, MEDICAID | LOC: M PLAIMG 09:08 | PROVIDERS: ATTEND Nurse Practitioner Family | DX: J44.9 Chronic obstructive pulmonary disease, unspecified (principal) ==

== ENCOUNTER → 2023-08-14 | Outpatient (CLI) | payer OTHER, MEDICAID ==
[2023-08-14 15:52] LABS: BASO # 0.1 10^3/uL (0.0-0.2); BASO % 1.5 % (0.0-1.0); EOS # 0.3 10^3/uL (0.0-0.5); EOS % 3.5 % (0.0-3.0); HEMATOCRIT 50.4 % (42.0-52.0); HEMOGLOBIN 16.7 g/dl (13.5-17.5); LYMPH # 2.1 10^3/uL (1.5-5.0); LYMPH % 24.4 % (24.0-44.0); MEAN CORPUSCULAR HEMOGLOBIN 31.3 pg (27.0-33.0); MEAN CORPUSCULAR HGB CONC 33.1 g/dl (32.0-36.5); MEAN CORPUSCULAR VOLUME 94.6 fl (80.0-96.0); MONO # 0.9 10^3/uL (0.0-0.8); MONO % 10.6 % (2.0-8.0); NEUTROPHILS # 5.2 10^3/uL (1.5-8.5); NEUTROPHILS % 59.5 % (36.0-66.0); PLATELET COUNT, AUTOMATED 339 10^3/uL (150-450); RED BLOOD COUNT 5.33 10^6/uL (4.30-6.10); WHITE BLOOD COUNT 8.7 10^3/uL (4.0-10.0)
[2023-08-14 16:24] LABS: ALBUMIN 3.7 G/DL (3.2-5.2); ALKALINE PHOSPHATASE 94 U/L (46-116); ALT/SGPT 28 U/L (7.0-40); AST/SGOT 17 U/L (<34); BILIRUBIN,TOTAL 0.3 MG/DL (0.3-1.2); BLOOD UREA NITROGEN 17 MG/DL (9-23); CALCIUM LEVEL 10.2 MG/DL (8.5-10.1); CARBON DIOXIDE LEVEL 28 MMOL/L (20-31); CHLORIDE LEVEL 105 MMOL/L (98-107); CHOLESTEROL LEVEL 227 MG/DL (<200); CHOLESTEROL RISK RATIO 4.16 (<5); CREATININE FOR GFR 1.13 MG/DL (0.70-1.30); FREE T4 0.99 NG/DL (0.89-1.76); GLOMERULAR FILTRATION RATE > 60.0 (>56); GLUCOSE, FASTING 93 MG/DL (60-100); HDL CHOLESTEROL 54.5 MG/DL (>40); LDL CHOLESTEROL 121.7 MG/DL (<100); NON-HDL-C 172.5 MG/DL; POTASSIUM SERUM 4.8 MMOL/L (3.5-5.1); SODIUM LEVEL 139 MMOL/L (136-145); THYROID STIMULATING HORMONE 3.966 uIU/ML (0.55-4.78); TOTAL 25(OH) VITAMIN D 34.2 NG/ML (20.0-100.0); TRIGLYCERIDES LEVEL 254 MG/DL (<150)
[2023-08-14 16:25] LABS: HEMOGLOBIN A1c 5.4 % (4.0-6.0)
== END ==
LOC: M PLALAB 13:43
PROVIDERS: ATTEND Nurse Practitioner Family
DX: E55.9 Vitamin D deficiency, unspecified (principal); E03.9 Hypothyroidism, unspecified; E78.5 Hyperlipidemia, unspecified; R73.09 Other abnormal glucose

== ENCOUNTER → 2023-10-30 | Outpatient (CLI) | payer OTHER, MEDICAID ==
[~2023-10-30] MED LIST changes: +DOXY-323 PO; -DOXY-443 PO; +FLUO-365 PO; -FLUO20CA22 PO; +ONDA-282 PO; -ONDA4TAB6 PO
== END ==
LOC: M RAD 08:26
PROVIDERS: ATTEND Physician Assistant
DX: Z12.2 Encounter for screening for malignant neoplasm of respiratory organs (principal); F17.218 Nicotine dependence, cigarettes, with other nicotine-induced disorders

== ENCOUNTER 2024-01-19 11:19 | Day surgery (SDC) | payer OTHER, MEDICAID ==
[~2024-01-19] VITALS: Ht 175.3 cm; Wt 78.1 kg
[~2024-01-19 11:19] MED LIST changes: +ALBU8.5H INH; +ATOR1TAB21 PO; +OMEP40CA5 PO; +SPIR12.9 INH
[2024-01-19] MEDS: NS 1,000 ML IV ONE (12:42)
[2024-01-19] MEDS ORDERED: fentaNYL 100 MCG/2 ML INJECTION As Ordered ONE (14:24)
[2024-01-19] MEDS ORDERED: propofoL 200 MG/20 ML VIAL As Ordered ONE (14:44)
[2024-01-19] MEDS ORDERED: LIDOCAINE 2% 100MG/5ML SDV (FOR ANES.) As Ordered ONE (14:45)
[2024-01-19] MEDS ORDERED: GLYCOPYRROLATE INJ 0.2 MG/ML 2 ML VIAL As Ordered ONE (14:54)
[2024-01-19 15:02] VITALS: TEMP 97.5
[2024-01-19 15:15] VITALS: BP 125/76; O2SAT 96
== END 2024-01-19 16:14 | disposition home or self-care (01) ==
LOC: M OPP 11:19
PROVIDERS: ATTEND Internal Medicine Gastroenterology
DX: K64.8 Other hemorrhoids (principal); D12.8 Benign neoplasm of rectum; D12.3 Benign neoplasm of transverse colon; B96.81 Helicobacter pylori [H. pylori] as the cause of diseases classified elsewhere; C88.4 Extranodal marginal zone B-cell lymphoma of mucosa-associated lymphoid tissue [MALT-lymphoma]; R13.10 Dysphagia, unspecified; F17.210 Nicotine dependence, cigarettes, uncomplicated; F10.10 Alcohol abuse, uncomplicated; R12 Heartburn; F41.9 Anxiety disorder, unspecified; F32.A Depression, unspecified; J44.9 Chronic obstructive pulmonary disease, unspecified; G47.33 Obstructive sleep apnea (adult) (pediatric); Z92.21 Personal history of antineoplastic chemotherapy; Z91.040 Latex allergy status
CPT/HCPCS: 43235; 45385; 88305; J1596; J3010

== ENCOUNTER → 2024-03-16 | Outpatient (CLI) | payer OTHER, MEDICAID ==
[~2024-03-16] MED LIST changes: -DOXY-323 PO; +DOXY-441 PO; +GABA-1172 PO; -GABA-282 PO
== END ==
LOC: M SLEEP 20:00
PROVIDERS: ATTEND Physician Assistant
DX: G47.33 Obstructive sleep apnea (adult) (pediatric) (principal); G47.61 Periodic limb movement disorder

== ENCOUNTER → 2024-04-12 | Outpatient (CLI) | payer OTHER, MEDICAID ==
[2024-04-12 17:36] LABS: BASO # 0.1 10^3/uL (0.0-0.2); BASO % 1.2 % (0.0-1.0); EOS # 0.2 10^3/uL (0.0-0.5); EOS % 1.8 % (0.0-3.0); HEMATOCRIT 45.9 % (42.0-52.0); HEMOGLOBIN 15.5 g/dl (13.5-17.5); LYMPH % 18.6 % (24.0-44.0); MEAN CORPUSCULAR HEMOGLOBIN 31.2 pg (27.0-33.0); MEAN CORPUSCULAR HGB CONC 33.8 g/dl (32.0-36.5); MEAN CORPUSCULAR VOLUME 92.4 fl (80.0-96.0); MONO # 0.9 10^3/uL (0.0-0.8); MONO % 8.6 % (2.0-8.0); NEUTROPHILS # 7.3 10^3/uL (1.5-8.5); NEUTROPHILS % 69.5 % (36.0-66.0); PLATELET COUNT, AUTOMATED 322 10^3/uL (150-450); RED BLOOD COUNT 4.97 10^6/uL (4.30-6.10); WHITE BLOOD COUNT 10.5 10^3/uL (4.0-10.0)
[2024-04-12 17:58] LABS: ALBUMIN 3.6 G/DL (3.2-5.2); ALKALINE PHOSPHATASE 90 U/L (40-129); ALT/SGPT 26 U/L (7.0-40); AST/SGOT 15 U/L (<34); BILIRUBIN,TOTAL 0.2 MG/DL (0.3-1.2); BLOOD UREA NITROGEN 18 MG/DL (9-23); CALCIUM LEVEL 9.9 MG/DL (8.5-10.1); CARBON DIOXIDE LEVEL 26 MMOL/L (20-31); CHLORIDE LEVEL 111 MMOL/L (98-107); CHOLESTEROL LEVEL 200 MG/DL (<200); CHOLESTEROL RISK RATIO 3.82 (<5); CREATININE FOR GFR 1.23 MG/DL (0.70-1.30); GLOMERULAR FILTRATION RATE > 60.0 (>56); GLUCOSE, FASTING 98 MG/DL (60-100); HDL CHOLESTEROL 52.3 MG/DL (>40); LDL CHOLESTEROL 118.3 MG/DL (<100); NON-HDL-C 147.7 MG/DL; POTASSIUM SERUM 4.6 MMOL/L (3.5-5.1); SODIUM LEVEL 142 MMOL/L (136-145); TOTAL PROTEIN 6.8 G/DL (5.7-8.2); TRIGLYCERIDES LEVEL 147 MG/DL (<150)
[2024-04-12 17:59] LABS: THYROID STIMULATING HORMONE 4.102 uIU/ML (0.55-4.78)
[2024-04-12 18:00] LABS: FREE T4 1.04 NG/DL (0.89-1.76)
== END ==
LOC: M PLALAB 14:37
PROVIDERS: ATTEND Nurse Practitioner Family
DX: E78.5 Hyperlipidemia, unspecified (principal); E55.9 Vitamin D deficiency, unspecified; E03.9 Hypothyroidism, unspecified; F32.9 Major depressive disorder, single episode, unspecified

== ENCOUNTER 2024-06-29 17:03 | Emergency (ER) | payer MEDICARE, MEDICAID ==
[~2024-06-29] VITALS: Ht 172.7 cm; Wt 74.2 kg
[2024-06-29 18:04] LABS: ALBUMIN 3.6 G/DL (3.2-5.2); BILIRUBIN,TOTAL 0.3 MG/DL (0.3-1.2); CALCIUM LEVEL 9.6 MG/DL (8.5-10.1); CREATININE FOR GFR 1.32 MG/DL (0.70-1.30); GLOMERULAR FILTRATION RATE 59.3 (>56); POTASSIUM SERUM 4.4 MMOL/L (3.5-5.1); TOTAL PROTEIN 6.7 G/DL (5.7-8.2)
[2024-06-29 18:25] LABS: BASO # 0.1 10^3/uL (0.0-0.2); BASO % 1.2 % (0.0-1.0); EOS # 0.3 10^3/uL (0.0-0.5); EOS % 2.3 % (0.0-3.0); HEMOGLOBIN 14.3 g/dl (13.5-17.5); LYMPH # 2.5 10^3/uL (1.5-5.0); LYMPH % 23.3 % (24.0-44.0); MEAN CORPUSCULAR HEMOGLOBIN 31.2 pg (27.0-33.0); MEAN CORPUSCULAR VOLUME 91.5 fl (80.0-96.0); MONO # 1.1 10^3/uL (0.0-0.8); MONO % 10.2 % (2.0-8.0); NEUTROPHILS # 6.8 10^3/uL (1.5-8.5); NEUTROPHILS % 62.6 % (36.0-66.0); PLATELET COUNT, AUTOMATED 363 10^3/uL (150-450); RED BLOOD COUNT 4.59 10^6/uL (4.30-6.10); WHITE BLOOD COUNT 10.8 10^3/uL (4.0-10.0)
[2024-06-29 21:49] LABS: HEMATOCRIT 41.9 % (42.0-52.0); HEMOGLOBIN 14.4 g/dl (13.5-17.5)
[2024-06-29 22:18] VITALS: BP 174/94; TEMP 98.6; O2SAT 96
== END 2024-06-29 22:15 | disposition home or self-care (01) ==
LOC: M ED 17:03 → EDBD 17:03 → M ED 22:15
DX: K62.5 Hemorrhage of anus and rectum (principal); R00.1 Bradycardia, unspecified; J44.9 Chronic obstructive pulmonary disease, unspecified; J45.909 Unspecified asthma, uncomplicated; E78.5 Hyperlipidemia, unspecified; K21.9 Gastro-esophageal reflux disease without esophagitis; F41.9 Anxiety disorder, unspecified; F17.200 Nicotine dependence, unspecified, uncomplicated; F12.10 Cannabis abuse, uncomplicated; F10.10 Alcohol abuse, uncomplicated; Z91.040 Latex allergy status; Z91.09 Other allergy status, other than to drugs and biological substances; Z79.52 Long term (current) use of systemic steroids; Z79.02 Long term (current) use of antithrombotics/antiplatelets; Z79.899 Other long term (current) drug therapy

== ENCOUNTER → 2024-07-04 | Outpatient (REF) | payer MEDICARE, MEDICAID, OTHER ==
[2024-07-04 14:28] LABS: APPEARANCE, URINE CLEAR (CLEAR); BACTERIA, URINE AUTO NEGATIVE (NEGATIVE); BILIRUBIN, URINE AUTO NEGATIVE (NEGATIVE); BLOOD, URINE BLOOD NEGATIVE (NEGATIVE); COLOR, URINE YELLOW (YELLOW); GLUCOSE, URINE (UA) AUTO NEGATIVE (NEGATIVE); KETONE, URINE AUTO NEGATIVE (NEGATIVE); LEUKOCYTE ESTERASE, URINE AUTO NEGATIVE (NEGATIVE); MUCUS, URINE SMALL (NEGATIVE); NITRITE, URINE AUTO NEGATIVE (NEGATIVE); PROTEIN, URINE AUTO NEGATIVE (NEGATIVE); RBC, URINE AUTO 0 /HPF (0-3); SPECIFIC GRAVITY URINE AUTO 1.014 (1.002-1.035); SQUAMOUS EPITHELIAL CELL UR AU 0 /HPF (0-6); UROBILINOGEN, URINE AUTO 0.2 mg/dL (0.0-2.0); WBC, URINE AUTO 0 /HPF (0-3)
== END ==
LOC: M SFHCPLAZ 12:57
PROVIDERS: ATTEND Nurse Practitioner Family
DX: N39.0 Urinary tract infection, site not specified (principal)

== ENCOUNTER → 2024-07-10 | Outpatient (CLI) | payer MEDICARE, MEDICAID ==
[2024-07-10 10:40] LABS: BASO # 0.1 10^3/uL (0.0-0.2); BASO % 1.3 % (0.0-1.0); EOS # 0.3 10^3/uL (0.0-0.5); EOS % 3.2 % (0.0-3.0); HEMATOCRIT 44.4 % (42.0-52.0); HEMOGLOBIN 14.6 g/dl (13.5-17.5); LYMPH # 1.9 10^3/uL (1.5-5.0); LYMPH % 20.3 % (24.0-44.0); MEAN CORPUSCULAR HEMOGLOBIN 30.6 pg (27.0-33.0); MEAN CORPUSCULAR HGB CONC 32.9 g/dl (32.0-36.5); MEAN CORPUSCULAR VOLUME 93.1 fl (80.0-96.0); MONO # 0.9 10^3/uL (0.0-0.8); MONO % 9.1 % (2.0-8.0); NEUTROPHILS # 6.1 10^3/uL (1.5-8.5); NEUTROPHILS % 65.7 % (36.0-66.0); PLATELET COUNT, AUTOMATED 369 10^3/uL (150-450); RED BLOOD COUNT 4.77 10^6/uL (4.30-6.10); WHITE BLOOD COUNT 9.3 10^3/uL (4.0-10.0)
[2024-07-10 10:48] LABS: ALBUMIN 3.6 G/DL (3.2-5.2); BLOOD UREA NITROGEN 18 MG/DL (9-23); CALCIUM LEVEL 9.4 MG/DL (8.5-10.1); CARBON DIOXIDE LEVEL 27 MMOL/L (20-31); CHLORIDE LEVEL 110 MMOL/L (98-107); CREATININE FOR GFR 1.29 MG/DL (0.70-1.30); GLOMERULAR FILTRATION RATE > 60.0 (>56); GLUCOSE, FASTING 118 MG/DL (60-100); PHOSPHORUS LEVEL 2.2 MG/DL (2.5-4.9); POTASSIUM SERUM 4.5 MMOL/L (3.5-5.1); SODIUM LEVEL 144 MMOL/L (136-145)
== END ==
LOC: M PLALAB 08:43
PROVIDERS: ATTEND Nurse Practitioner Family
DX: I10 Essential (primary) hypertension (principal); K62.5 Hemorrhage of anus and rectum

== ENCOUNTER 2024-10-24 10:01 | Day surgery (SDC) | payer MEDICARE, MEDICAID ==
[~2024-10-24] VITALS: Ht 172.7 cm; Wt 76.9 kg
[~2024-10-24 10:01] MED LIST changes: +GLYCOPYRROLATE INJ 0.2 MG/ML 2 ML VIAL As Ordered ONE; +LIDOCAINE 2% 100 MG/5 ML SDV (FOR ANES.) As Ordered ONE; +LISI10TA22 PO; +NORV5TAB PO; +VARE1TAB2 PO
[2024-10-24 12:24] VITALS: BP 157/88; O2SAT 99
== END 2024-10-24 12:30 | disposition home or self-care (01) ==
LOC: M OPP 10:01
PROVIDERS: ATTEND Internal Medicine Gastroenterology
DX: D12.4 Benign neoplasm of descending colon (principal); K64.8 Other hemorrhoids; K92.1 Melena; K31.89 Other diseases of stomach and duodenum; C88.41 Extranodal marginal zone B-cell lymphoma of mucosa-associated lymphoid tissue [MALT-lymphoma], in remission; B96.81 Helicobacter pylori [H. pylori] as the cause of diseases classified elsewhere; D50.9 Iron deficiency anemia, unspecified; G47.30 Sleep apnea, unspecified; Z91.040 Latex allergy status; Z91.048 Other nonmedicinal substance allergy status; Z79.51 Long term (current) use of inhaled steroids; Z79.899 Other long term (current) drug therapy; J44.9 Chronic obstructive pulmonary disease, unspecified; F17.210 Nicotine dependence, cigarettes, uncomplicated
CPT/HCPCS: 43239; 45385; 88305; J1596; J3010

== ENCOUNTER → 2024-11-26 | Outpatient (CLI) | payer MEDICARE, MEDICAID ==
[~2024-11-26] MED LIST changes: -GLYCOPYRROLATE INJ 0.2 MG/ML 2 ML VIAL As Ordered ONE; -LIDOCAINE 2% 100 MG/5 ML SDV (FOR ANES.) As Ordered ONE
[2024-11-26 17:23] LABS: BASO # 0.2 10^3/uL (0.0-0.2); BASO % 1.6 % (0.0-1.0); EOS # 0.2 10^3/uL (0.0-0.5); EOS % 2.4 % (0.0-3.0); LYMPH # 1.7 10^3/uL (1.5-5.0); LYMPH % 16.5 % (24.0-44.0); MONO # 0.8 10^3/uL (0.0-0.8); MONO % 8.1 % (2.0-8.0); NEUTROPHILS # 7.2 10^3/uL (1.5-8.5); NEUTROPHILS % 71.1 % (36.0-66.0); PLATELET COUNT, AUTOMATED 388 10^3/uL (150-450)
[2024-11-26 17:42] LABS: ALT/SGPT 34.0 U/L (7.0-40); AST/SGOT 26.0 U/L (<34); CALCIUM LEVEL 9.6 MG/DL (8.5-10.1); CARBON DIOXIDE LEVEL 24.0 MMOL/L (20-31); CHLORIDE LEVEL 108.0 MMOL/L (98-107); CHOLESTEROL LEVEL 148.0 MG/DL (<200); CHOLESTEROL RISK RATIO 3.16 (<5); CREATININE FOR GFR 1.76 MG/DL (0.70-1.30); GLOMERULAR FILTRATION RATE 44.3 (>56); LDL CHOLESTEROL 79.3 MG/DL (<100); MAGNESIUM LEVEL 1.9 MG/DL (1.8-2.4); NON-HDL-C 101.3 MG/DL; POTASSIUM SERUM 5.2 MMOL/L (3.5-5.1); SODIUM LEVEL 141.0 MMOL/L (136-145); TRIGLYCERIDES LEVEL 110.0 MG/DL (<150)
[2024-11-26 17:45] LABS: TOTAL 25(OH) VITAMIN D 41.0 NG/ML (20.0-100.0)
[2024-11-26 17:46] LABS: FREE T4 1.12 NG/DL (0.89-1.76)
[2024-11-26 17:49] LABS: ESTIMATED AVERAGE GLUCOSE 117.0 MG/DL (60-110)
== END ==
LOC: M PLALAB 16:01
PROVIDERS: ATTEND Nurse Practitioner Family
DX: Z00.00 Encounter for general adult medical examination without abnormal findings (principal); I10 Essential (primary) hypertension; E03.9 Hypothyroidism, unspecified; R73.09 Other abnormal glucose; E55.9 Vitamin D deficiency, unspecified; E78.5 Hyperlipidemia, unspecified

== ENCOUNTER → 2024-12-06 | Outpatient (CLI) | payer MEDICARE, MEDICAID | LOC: M RAD 09:25 | PROVIDERS: ATTEND Physician Assistant | DX: F17.218 Nicotine dependence, cigarettes, with other nicotine-induced disorders (principal) ==

== ENCOUNTER → 2024-12-10 | Outpatient (CLI) | payer MEDICARE, MEDICAID ==
[~2024-12-10] MED LIST changes: +E-Z-GAS II EFFERVESCENT PACKET (SODIUM BICARB./CITRIC ACID/SIMETHICONE) As Ordered ONE; +E-Z-HD 98% w/w 340 GM SUSP BTL As Ordered ONE; +E-Z-PAQUE 96% w/w SUSP 176 GM BTL As Ordered ONE
== END ==
LOC: M RAD 07:58
PROVIDERS: ATTEND Physician Assistant Medical
DX: R13.10 Dysphagia, unspecified (principal)

== ENCOUNTER → 2024-12-25 | Outpatient (CLI) | payer MEDICARE, MEDICAID ==
[~2024-12-25] MED LIST changes: -E-Z-GAS II EFFERVESCENT PACKET (SODIUM BICARB./CITRIC ACID/SIMETHICONE) As Ordered ONE; -E-Z-HD 98% w/w 340 GM SUSP BTL As Ordered ONE; -E-Z-PAQUE 96% w/w SUSP 176 GM BTL As Ordered ONE; +PROHANCE 279.3MG/ML 15ML VIAL As Ordered ONE
== END ==
LOC: M RAD 16:24
PROVIDERS: ATTEND Nurse Practitioner Family
DX: N28.89 Other specified disorders of kidney and ureter (principal); N28.81 Hypertrophy of kidney; R31.0 Gross hematuria
CPT/HCPCS: 74183; A9576

== ENCOUNTER → 2025-01-18 | Outpatient (CLI) | payer MEDICARE, MEDICAID ==
[~2025-01-18] VITALS: Ht 175.3 cm; Wt 79.5 kg
[~2025-01-18] MED LIST changes: +AMLO1TAB25; -PROHANCE 279.3MG/ML 15ML VIAL As Ordered ONE; +VARE1TAB2
[2025-01-18 12:15] VITALS: TEMP 98.7
[2025-01-18] MEDS: NS (Normal Saline) 0.9% 1,000 ML IV SCH (12:53)
[2025-01-18] MEDS: ceFAZolin SODIUM 2 GM in DEXTROSE 5% (D5W) ADV/MINI-BAG 50 ML IV ONE (12:53)
[2025-01-18] MEDS: MIDAZOLAM INJ 2 MG/2 ML VIAL IV PRN (12:57)
[2025-01-18] MEDS: LIDOCAINE 1% MDV 20 ML VIAL SC SCH (13:05)
[2025-01-18 13:25] VITALS: BP 129/73; O2SAT 96
== END ==
LOC: M IRPRO 11:56
PROVIDERS: ATTEND Specialist
DX: N28.89 Other specified disorders of kidney and ureter (principal)
CPT/HCPCS: 36561; 99152; J0688; J1642; J2250; J3010

== ENCOUNTER 2025-02-08 13:13 | Emergency (ER) | payer MEDICARE, MEDICAID ==
[~2025-02-08] VITALS: Ht 175.3 cm; Wt 77.8 kg
[2025-02-08] MEDS: LIDOCAINE 4% CREAM 5 GM (LMX4) TOP ONE (16:01)
[2025-02-08] MEDS: KETOROLAC 60 MG/2 ML VIAL IM ONE (16:09)
[2025-02-08] MEDS: LIDOCAINE 5% PATCH TD ONE (16:09)
[2025-02-08] MEDS ORDERED: METH-1165 PO (18:01)
[2025-02-08] MEDS ORDERED: LIDO76.52 TOP (18:01)
[2025-02-08 18:10] VITALS: BP 120/77; TEMP 97; O2SAT 95
== END 2025-02-08 18:22 | disposition home or self-care (01) ==
LOC: M ED 13:13
DX: M54.2 Cervicalgia (principal); I10 Essential (primary) hypertension; E78.5 Hyperlipidemia, unspecified; J44.9 Chronic obstructive pulmonary disease, unspecified; K21.9 Gastro-esophageal reflux disease without esophagitis; F17.200 Nicotine dependence, unspecified, uncomplicated; C64.9 Malignant neoplasm of unspecified kidney, except renal pelvis; Z91.040 Latex allergy status; Z91.09 Other allergy status, other than to drugs and biological substances; Z79.52 Long term (current) use of systemic steroids; Z79.02 Long term (current) use of antithrombotics/antiplatelets; Z79.899 Other long term (current) drug therapy
CPT/HCPCS: 71045; 96372; 99284; J1885

== ENCOUNTER 2025-03-15 11:49 | Emergency (ER) | payer MEDICARE, MEDICAID ==
[~2025-03-15] VITALS: Ht 175.3 cm; Wt 79.2 kg
[~2025-03-15 11:49] MED LIST changes: +AMLO1TAB24 PO; +ATIV1TAB7 PO; +INLY5TAB PO; +LIDO76.52 TOP; +METH-1165 PO
[2025-03-15] MEDS: predniSONE 20 MG TAB PO ONE (15:26)
[2025-03-15 16:29] VITALS: BP 129/83; TEMP 97.4; O2SAT 96
[2025-03-15] MEDS ORDERED: PRED20TA PO (16:30)
== END 2025-03-15 16:39 | disposition home or self-care (01) ==
LOC: M ED 11:49
DX: L50.9 Urticaria, unspecified (principal); M79.602 Pain in left arm; I10 Essential (primary) hypertension; G47.33 Obstructive sleep apnea (adult) (pediatric); K21.9 Gastro-esophageal reflux disease without esophagitis; F41.9 Anxiety disorder, unspecified; F32.A Depression, unspecified; C64.9 Malignant neoplasm of unspecified kidney, except renal pelvis; Z91.040 Latex allergy status; Z91.09 Other allergy status, other than to drugs and biological substances; Z79.52 Long term (current) use of systemic steroids; Z79.02 Long term (current) use of antithrombotics/antiplatelets; Z79.899 Other long term (current) drug therapy
CPT/HCPCS: 93971; 99283; J7512

== ENCOUNTER → 2025-03-18 | Outpatient (CLI) | payer MEDICARE, MEDICAID | LOC: M RAD 15:17 | PROVIDERS: ATTEND Internal Medicine Medical Oncology | DX: N18.9 Chronic kidney disease, unspecified (principal) ==